=== PATIENT | female | born 1940 | race Caucasian/White ===

== ENCOUNTER 2016-11-13 15:50 | Outpatient (CLI) ==
[2016-11-13 15:57] LABS: HEMATOCRIT 35.1 % (37.0-47.0); HEMOGLOBIN 11.8 g/dl (12.0-16.0); MEAN CORPUSCULAR HEMOGLOBIN 30.7 pg (27.0-31.0); MEAN CORPUSCULAR HGB CONC 33.6 (31.8-35.4); MEAN CORPUSCULAR VOLUME 91.4 fl (81.0-99.0); RED BLOOD COUNT 3.84 10^6/ul (4.20-5.40); WHITE BLOOD COUNT 12.31 K/ul (4.6-10.2)
== END 2016-11-13 15:51 | disposition home or self-care (01) ==
LOC: NONPT 15:50
PROVIDERS: ATTEND Family Medicine
DX: N18.9 Chronic kidney disease, unspecified (principal); I12.9 Hypertensive chronic kidney disease with stage 1 through stage 4 chronic kidney disease, or unspecified chronic kidney disease; D50.9 Iron deficiency anemia, unspecified
CPT/HCPCS: 85027

== ENCOUNTER 2023-11-13 13:41 | Observation (INO) ==
--- NOTE | 2023-11-13 14:09 | ED.PDOC ---
General ED Provider: Dr. REBECCA MANNING MD Chief Complaint: Respiratory Complaint Stated Complaint: Patient with history of hypertension has had a productive cough green sputum for the past 3 weeks treated by primary care provider past couple days and placed on antibiotic patient has pain with inspiration denies nausea, vomiting, arthralgia, chest pain, dyspnea, Time Seen by Provider: 11/13/23 14:00 Mode of Arrival: Wheelchair Information Source: Patient Exam Limitations: Clinical condition Primary Care Provider: HALIMA MCCULLOUGH Seen Within Last 72 Hours for Same Complaint By: ED Nursing and Triage Documentation Reviewed and Agree: Yes What is Opioid Naive?: *Opioid Naive implies the patient is not already taking opioids or not chronically receiving opioids on a daily basis. *PRN dosing is not "usually" associated with tolerance. *Patients are at higher risk of over-sedation and aspiration. What is Opioid Tolerant?: *Opioid Tolerance implies less than the expected response to an opioid. *Acquired tolerance is defined by the patient taking 60mg of oral morphine daily (or equianalgesic dose of another opioid) for 1 week or more. *Often associated with chronic pain. *May take more than usual dose to achieve desired pain control. Review of Systems Review Of Systems Constitutional: Reports Weakness Eyes: Reports No symptoms Ears, Nose, Mouth, Throat: Reports No symptoms Respiratory: Reports Cough (Productive cough green sputum) Cardiac: Reports Chest pain ( pain upon inspiration and coughing) GI: Reports No symptoms : Reports No symptoms Musculoskeletal: Reports No symptoms Skin: Reports No symptoms Neurological: Reports No symptoms Endocrine: Reports No symptoms Hematologic/Lymphatic: Reports No symptoms All Other Systems: Reviewed and Negative PFSH Female Reproductive History Menstrual Hx Hysterectomy: Yes Hx Tubal Ligation: No Physical Exam Physical Exam Appearance: Reports Well-appearing Ill-appearing: None Pain Distress: None Eyes: Reports LAURIE, EOMI, Conjunctiva clear and Conjunctiva inflammed ENT: Reports Ears normal, Nose normal and Oropharynx normal Neck: Supple Respiratory: Reports Breath sounds diminished (At bases no wheezes rhonchi) Cardiovascular: Reports RRR, Pulses normal, No rub, No murmur and Not Examined GI/: Reports Soft, Nontender, No masses and Bowel sounds normal Musculoskeletal: Reports Normal strength, ROM intact, No edema and No calf tenderness Skin: Reports Warm and Dry Neurological: Reports Sensation intact, Motor intact and Reflexes intact Psychiatric: Reports Affect appropriate and Mood appropriate Physician Notification Case Discussed Physician Notified: Discussed with Dr. Maguire Time of Notification: 17:40 Comments: With recommendations to refer hospitalization to the hospitalist Physician Notified: Discussed with hospitalist Toney Time of Notification: 17:45 Comments: For admission to observation Critical Care Note Critical Care Note Total Critical Care Time (mins): 0 Course Course 11/13/23 14:22 11/13/23 14:22 Orders, Labs, Meds: Lab Review 11/13/23 11/13/23 11/13/23 14:22 14:30 17:00 WBC 12.78 H RBC 3.83 L Hgb 12.4 Hct 37.7 MCV 98.4 MCH 32.4 H MCHC 32.9 RDW Coeff of Staci 12.6 Plt Count 322 Immature Gran % (Auto) 1.3 Neut % (Auto) 70.1 Lymph % (Auto) 16.4 Ida % (Auto) 10.1 H Eos % (Auto) 1.2 Baso % (Auto) 0.9 Neut # (Auto) 9.0 H Lymph # (Auto) 2.1 Ida # (Auto) 1.3 Eos # (Auto) 0.2 Baso # (Auto) 0.1 Immature Gran # (Auto) 0.2 Sodium 133.5 L Potassium 3.10 L Chloride 103.3 Carbon Dioxide 26.7 Anion Gap 6.60 BUN 17.2 H Creatinine 1.37 H Estimated GFR (MDRD) 37.00 BUN/Creatinine Ratio 12.55 Glucose 99.1 Calcium 9.01 Total Bilirubin 1.01 AST 22.5 ALT 13.6 Alkaline Phosphatase 54.9 Troponin I < 0.012 Total Protein 6.35 Albumin 3.60 Globulin 2.75 Albumin/Globulin Ratio 1.30 D-Dimer 979.01 H Urine Color Yellow Urine Clarity Clear Urine pH 6.0 Ur Specific [place] 1.010 Urine Protein Trace H Urine Glucose (UA) Negative Urine Ketones Trace H Urine Blood 2+ H Urine Nitrite Negative Urine Bilirubin Negative Urine Urobilinogen 0.2 Ur Leukocyte Esterase Negative Urine Microscopic RBC 2-5 Ur Squamous Epith Cells 0-2 Ur Renal Epithelial Cell 0-2 Urine Mucus Trace Influ A Molecular Assay Negative by naat Influ B Molecular Assay Negative by naat RSV Antigen Positive by naat H SARS CoV-2 RNA Rapid EDVIN Negative Orders Category Date Time Status ADMIT OBSERVATION [PLACE PATIENT OBSERVATION] .TO ADMISSION 11/13/23 17:46 Active MEDSURG (MONITORED BED) EKG-(ED ONLY) Stat CARDIO 11/13/23 14:10 Completed NEBULIZER TREATMENT Routine CARDIO 11/13/23 17:49 Ordered NEBULIZER TREATMENT Stat CARDIO 11/13/23 14:11 Completed ACTIVITY .Early Mobilization for VTE Prevention CARE 11/13/23 17:47 Active INTAKE & OUTPUT Q8HR CARE 11/13/23 17:49 Active NPO REMINDER: IMAGING ONCE CARE 11/13/23 15:07 Completed TELEMETRY MONITORING TELE CARE 11/13/23 17:46 Active VITAL SIGNS Q4HR CARE 11/13/23 17:49 Active REGULAR DIET DIETARY 11/13/23 Dinner Ordered Glass Blowing Lathe Operator [ED MANUFACTURING SUPPORT ENGINEER APPLIED] .ONCE EMERGENCY 11/13/23 14:10 Active BLOOD CULTURE (ED ONLY) Stat LAB 11/13/23 17:28 Received CBC W/ AUTO DIFF DAILY@0600 LAB 11/14/23 06:00 Ordered CBC W/ AUTO DIFF DAILY@0600 LAB 11/15/23 06:00 Ordered CBC W/ AUTO DIFF Stat LAB 11/13/23 14:22 Completed CMP [COMPREHENSIVE METABOLIC PANEL] Stat LAB 11/13/23 14:22 Completed COMPREHENSIVE METABOLIC PANEL DAILY@0600 LAB 11/14/23 06:00 Ordered COMPREHENSIVE METABOLIC PANEL DAILY@0600 LAB 11/15/23 06:00 Ordered COVID [SARS COV-2 RNA RAPID EDVIN] Stat LAB 11/13/23 14:30 Completed D-DIMER Stat LAB 11/13/23 14:22 Completed FLU A & B MOLECULAR [FLU A/B MOLECULAR] Stat LAB 11/13/23 14:30 Completed RSV Stat LAB 11/13/23 14:30 Completed SPUTUM CULTURE Routine LAB 11/13/23 17:47 Uncollected TROPONIN I Stat LAB 11/13/23 14:22 Completed URINALYSIS C & S IF INDICATED Stat LAB 11/13/23 17:00 Completed Acetaminophen [Tylenol] Meds 11/13/23 17:47 Ordered 650 mg PO Q4H PRN Albuterol Sulfate 0.083% Neb [Albuterol 0.083% Neb] Meds 11/13/23 17:47 Ordered 2.5 mg NEB RTQ4H PRN Ceftriaxone/D5w 1 gm Premix [Rocephin 1 gm/50 ml D5w] Meds 11/14/23 09:00 Active 1 gm in 50 ml IV DAILY Doxycycline Hyclate Inj [Doxy-100] 100 mg Meds 11/14/23 09:00 Active 0.9 % Sodium Chloride [Sodium Chloride 100Ml] 100 ml IV Q12HR Ipratropium/Albuterol Neb [Duoneb] Meds 11/13/23 14:10 Discontinued 3 ml NEB ONCE STA Ipratropium/Albuterol Neb [Duoneb] Meds 11/13/23 18:00 Ordered 3 ml NEB RTQ6H Methylprednisolone Sod Succ/Pf [Solu-Medrol 40 mg] Meds 11/13/23 21:00 Ordered 40 mg IVP Q8HR Potassium Chloride [K-Dur] Meds 11/13/23 15:13 Discontinued 40 meq PO ONCE STA Sodium Chloride 0.9% [Sodium Chloride] 500 ml Meds 11/13/23 14:10 Discontinued IV BOLUS CHEST, 1V AP ONLY Stat RADS 11/13/23 14:09 Completed CTA CHEST PE PROTOCOL Stat RADS 11/13/23 15:06 Completed Medications Generic Name Dose Route Start Last Admin Trade Name Freq PRN Reason Stop Dose Admin Acetaminophen 650 mg 11/13/23 17:47 Acetaminophen 325 Mg Tablet PO Q4H PRN Mild Pain Albuterol Sulfate 2.5 mg 11/13/23 17:47 Albuterol Sulfate 0.083% Vial.Neb NEB RTQ4H PRN Wheezing Albuterol/Ipratropium 3 ml 11/13/23 18:00 Ipratropium/Albuterol Vial.Neb NEB RTQ6H JATIN Doxycycline Hyclate 100 mg/ 100 mls @ 50 mls/hr 11/14/23 09:00 Sodium Chloride IV 11/17/23 08:59 Q12HR JATIN CEFTRIAXONE/D5W 1 GM PREMIX 1 gm in 50 mls @ 100 mls/hr 11/14/23 09:00 Rocephin 1 Gm/50 Ml D5w IV 11/17/23 08:59 DAILY JATIN Methylprednisolone Sodium Succinate 40 mg 11/13/23 21:00 Methylprednisolone Sod Succ/Pf 40 Mg/Ml Vial IVP Q8HR JATIN Discontinued Medications Generic Name Dose Route Start Last Admin Trade Name Freq PRN Reason Stop Dose Admin Albuterol/Ipratropium 3 ml 11/13/23 14:10 11/13/23 14:39 Ipratropium/Albuterol Vial.Neb NEB 11/13/23 14:11 3 ml ONCE STA Administration Sodium Chloride 500 mls @ 250 mls/hr 11/13/23 14:10 11/13/23 15:27 Sodium Chloride IV 11/13/23 16:09 250 mls/hr BOLUS ONE Administration Potassium Chloride 40 meq 11/13/23 15:13 11/13/23 15:16 Potassium Chloride 20 Meq Tab PO 11/13/23 15:14 40 meq ONCE STA Administration Vital Signs: Temp Pulse Resp BP Pulse Ox 11/13/23 13:42 97.7 F 59 L 22 H 116/78 96 Discharge Plan Discharge Patient Disposition: PLACED OBSERVATION Discharge Problem: Respiratory syncytial virus (RSV), Acute hypokalemia Pneumonia Qualifiers: Pneumonia type: due to unspecified organism Laterality: bilateral Lung location: upper lobe of lung Qualified Code(s): J18.9 - Pneumonia, unspecified organism Prescriptions: No Action calcium 600 mg Capsule 1,200 mg PO BID sucralfate 1 gram tablet 1 mg PO QID lisinopril 20 mg tablet 20 mg PO DAILY tramadol 50 mg tablet 100 mg PO DAILY esomeprazole magnesium [Nexium] 40 mg Capsule,Delayed Release(Dr/Ec) 40 mg PO BID raloxifene 60 mg tablet 60 mg PO DAILY cranberry 450 mg Tablet 450 mg PO BID tramadol 50 mg tablet 50 mg PO TID PRN (Reason: pain) Qty: 30 0RF tramadol 50 mg tablet 50 mg PO TID PRN (Reason: joint pain) Qty: 30 0RF ergocalciferol (vitamin D2) [Vitamin D2] 1,250 mcg (50,000 unit) capsule 1,250 mcg PO DAILY Did you review [place] FIRE PRODUCTION OPERATOR for ALL controlled substances?: Not Applicable ED Provider: REBECCA MANNING Condition: Stable Physician Progress Note: History obtained from the patient and family member complains having a productive cough green sputum the past 3 weeks occasional dyspnea. Unsure of fever and chills. Has painful inspiration. Patient placed on antibiotics by primary care provider. Zithromax 250 mg since November 03 along with prednisone, 6-day course Medrol Dosepak Portable chest x-ray interpretation radiologist shows no acute cardiopulmonary process there is no pleural effusion consolidation of the thorax. Laboratory data CBC within normal limits except for white blood cell count 4700, troponin is less than 0.012, the BNP is within normal limit except potassium 3.1, and the D-dimer is 979. RSV is positive Patient administered potassium chloride [address] of the chest with intravenous contrast interpretation by radiologist shows no evidence of pulmonary embolism there is a subpleural groundglass opacity left upper lobe likely lesser from primary process less shows a similar less dense groundglass opacity posterior right lung base measuring 1.5 x 1 x 1 cm After 2 sets of blood cultures patient ministered doxycycline 100 mg IV piggyback Differential diagnosis: 1) pneumonia 2) RSV 3) hypokalemia Discussed with Dr. Maguire at 1740 with recommendations for hospitalization under care of the hospitalist Toney at 1745 []
[2023-11-13 14:29] LABS: BASOPHILS # (AUTO) 0.1 K/uL (0-0.2); BASOPHILS % (AUTO) 0.9 % (0.0-3.0); EOSINOPHILS # (AUTO) 0.2 K/ul (0.0-0.7); EOSINOPHILS % (AUTO) 1.2 % (0.0-7.0); HEMATOCRIT 37.7 % (37.0-47.0); HEMOGLOBIN 12.4 g/dl (12.0-16.0); IMMATURE GRANULOCYTE # (AUTO) 0.2 (0.0-1.0); IMMATURE GRANULOCYTE % (AUTO) 1.3 % (0.0-5.0); LYMPHOCYTES # (AUTO) 2.1 K/uL (0.60-3.4); LYMPHOCYTES % (AUTO) 16.4 (10.0-50.0); MEAN CORPUSCULAR HEMOGLOBIN 32.4 pg (27.0-31.0); MEAN CORPUSCULAR HGB CONC 32.9 (31.8-35.4); MEAN CORPUSCULAR VOLUME 98.4 fl (81.0-99.0); MONOCYTES # (AUTO) 1.3 K/uL (0.4-2.0); MONOCYTES % (AUTO) 10.1 (0-10); NEUTROPHILS % (AUTO) 70.1 % (42.2-75.2); PLATELET COUNT 322 10^3/uL (140-440); RDW COEFFICIENT OF VARIATION 12.6 % (11.6-14.8); RED BLOOD COUNT 3.83 10^6/ul (4.20-5.40); WHITE BLOOD COUNT 12.78 K/ul (4.6-10.2)
[2023-11-13] MEDS: DUONEB NEB STA (14:39)
--- NOTE | 2023-11-13 14:42 | DI ---
EXAM: CHEST RADIOGRAPH (1 VIEW) TECHNIQUE: Frontal Chest Radiograph. HISTORY: Productive cough COMPARISON: 06/10/2023. FINDINGS: Lines, Tubes, Devices: None Lungs and Pleura: No focal consolidation. No pleural effusion. No pneumothorax. Cardiac silhouette: Normal. Bones: No acute abnormality. IMPRESSION: No acute radiographic abnormality. If symptoms persist, follow-up imaging is recommended.
[2023-11-13 14:44] LABS: ALANINE AMINOTRANSFERASE 13.6 U/L (0-35); ALKALINE PHOSPHATASE 54.9 U/L (53-141); ASPARTATE AMINO TRANSFERASE 22.5 U/L (14-36); BILIRUBIN,TOTAL 1.01 mg/dL (0.2-1.3); BLOOD UREA NITROGEN 17.2 mg/dL (7-17); CALCIUM 9.01 mg/dL (8.4-10.2); CARBON DIOXIDE 26.7 mmol/L (22-30.0); CHLORIDE 103.3 mmol/L (98-107); CREATININE 1.37 mg/dL (0.60-1.30); GLUCOSE 99.1 mg/dL (74-106); SODIUM 133.5 mmol/L (134.5-145); TOTAL PROTEIN 6.35 g/dL (6.3-8.2)
[2023-11-13 14:55] LABS: RSV MOLECULAR POSITIVE BY NAAT (NEGATIVE)
[2023-11-13 14:56] LABS: TROPONIN I < 0.012 ng/ml (0.0000-0.120)
[2023-11-13 15:04] LABS: MOLECULAR FLU A NEGATIVE BY NAAT (NEGATIVE); MOLECULAR FLU B NEGATIVE BY NAAT (NEGATIVE); SARS COV-2 RNA RAPID NAAT NEGATIVE (NEGATIVE)
[2023-11-13] MEDS: K-DUR PO STA (15:16)
[2023-11-13] MEDS: SODIUM CHLORIDE 500 ML IV ONE (15:27)
--- NOTE | 2023-11-13 16:43 | CT ---
EXAM: CHEST CTA WITH CONTRAST (PULMONARY ARTERY) HISTORY: Chest pain. Elevated D-dimer. TECHNIQUE: CTA acquisition of the chest from the thoracic inlet to the upper abdomen following IV con trast administration timed to filling of the pulmonary artery. IV Contrast: 100 ccs Visipaque 320. 3D/MIP/VR images Yes. CT Dose Reduction Techniques Employed: Yes. COMPARISON: None. FINDINGS: Lines, Tubes, Devices: None. Pulmonary Embolism: - Diagnostic quality: Adequate. - Central(Main/Lobar/Interlobar): No embolus. - Peripheral (Segmental/Subsegmental): No embolus. - Right ventricle/Left ventricle ratio (normal <0.9): Normal. Lung Parenchyma and Airways: Central airways are patent without endobronchial lesion. No focal consolidation. Severe parenchyma is limited due to motion artifact. There is a subpleural consolidation in the anterior medial left upper lobe measuring up to 1.0 x 2.0 cm.. There is a ground-glass opacity in the posterior right lung base measuring up to 1.5141 cm. Pleural Space: No pleural effusion. No pleural thickening. No pneumothorax. Thoracic Inlet, Mediastinum, and Cira: Thyroid gland is normal. No lymphadenopathy. Heart, Vessels, and Pericardium: -Aorta is normal in caliber with mild atherosclerotic calcifications. -Main pulmonary artery is normal in caliber. -Heart chambers are not enlarged. -No significant valvular calcifications. -No significant coronary artery calcifications, however exam is not optimized for evaluation. -No pericardial effusion or thickening. Bones and Soft Tissues: Visualized bones are within normal limits. Chest wall soft tissues are withi n normal limits. Upper Abdomen: Elevated right hemidiaphragm. There is a hiatal hernia. Thickening of the distal eso phageal wall is seen measuring up to 9 mm. There is some contrast in the stomach.. IMPRESSION: 1. No pulmonary embolism. 2. Subpleural ground-glass opacity in left upper lobe, likely due to atelectasis or inflammatory pro cess. Less shows a similar, less dense ground-glass opacity posterior right lung base measuring 1.5 1.1 cm. Recommend short-term follow-up chest CT in 3 months to exclude developing mass. 3. Hiatal hernia. Distal esophageal wall All CT scans are performed using dose optimization techniques as appropriate to the performed exam an d include at least one of the following: Automated exposure control, adjustment of the mA and/or kV according t o size, and the use of iterative reconstruction technique.
[2023-11-13 17:38] LABS: BILIRUBIN,URINE Negative (NEGATIVE); CLARITY,URINE Clear (CLEAR); COLOR,URINE Yellow (YELLOW); GLUCOSE, URINE (UA) Negative (NEGATIVE); KETONES,URINE Trace (NEGATIVE); LEUKOCYTE ESTERASE ,URINE Negative (NEGATIVE); NITRITE,URINE Negative (NEGATIVE); PROTEIN,URINE Trace (NEGATIVE); URINE, BLOOD 2+ (NEGATIVE); UROBILINOGEN,URINE 0.2 (0.2)
[2023-11-13 17:43] LABS: RENAL EPITHELIAL CELLS,URINE 0-2 (NOT PRESENT); SQUAMOUS EPITHELIAL CELL,UR 0-2 (0-5)
[2023-11-13 17:44] LABS: MUCUS,URINE TRACE (NOT PRESENT)
[2023-11-13] MEDS ORDERED: ALBUTEROL 0.083% NEB NEB PRN (17:47)
[2023-11-13] MEDS ORDERED: TYLENOL PO PRN (17:47)
[2023-11-13] MEDS: DUONEB NEB SCH (18:14)
[2023-11-13] MEDS: DOXY-100 100 MG in SODIUM CHLORIDE 100ML 100 ML IV ONE (18:59)
[2023-11-13 20:27] VITALS: BMI 21.2
[2023-11-13] MEDS: TESSALON PERLES PO PRN (21:08)
[2023-11-13] MEDS: ZOFRAN 4 MG/2 ML IVP PRN (21:08)
[2023-11-13] MEDS: SOLU-MEDROL 40 MG IVP SCH (21:08)
[2023-11-14 06:25] LABS: BASOPHILS % (AUTO) 0.5 % (0.0-3.0); HEMATOCRIT 35.9 % (37.0-47.0); HEMOGLOBIN 11.6 g/dl (12.0-16.0); IMMATURE GRANULOCYTE # (AUTO) 0.1 (0.0-1.0); IMMATURE GRANULOCYTE % (AUTO) 0.9 % (0.0-5.0); LYMPHOCYTES # (AUTO) 0.6 K/uL (0.60-3.4); LYMPHOCYTES % (AUTO) 7.5 (10.0-50.0); MEAN CORPUSCULAR HEMOGLOBIN 31.6 pg (27.0-31.0); MEAN CORPUSCULAR HGB CONC 32.3 (31.8-35.4); MEAN CORPUSCULAR VOLUME 97.8 fl (81.0-99.0); MONOCYTES # (AUTO) 0.1 K/uL (0.4-2.0); MONOCYTES % (AUTO) 1.3 (0-10); NEUTROPHILS # (AUTO) 7.2 K/ul (2.0-6.9); NEUTROPHILS % (AUTO) 89.8 % (42.2-75.2); PLATELET COUNT 293 10^3/uL (140-440); RDW COEFFICIENT OF VARIATION 12.7 % (11.6-14.8); RED BLOOD COUNT 3.67 10^6/ul (4.20-5.40); WHITE BLOOD COUNT 7.98 K/ul (4.6-10.2)
[2023-11-14 06:40] LABS: ALANINE AMINOTRANSFERASE 14.3 U/L (0-35); ALBUMIN 3.36 g/dL (3.5-5.0); ALKALINE PHOSPHATASE 57.3 U/L (53-141); ASPARTATE AMINO TRANSFERASE 21.8 U/L (14-36); BILIRUBIN,TOTAL 0.83 mg/dL (0.2-1.3); BLOOD UREA NITROGEN 15.3 mg/dL (7-17); CALCIUM 8.42 mg/dL (8.4-10.2); CARBON DIOXIDE 20.8 mmol/L (22-30.0); CHLORIDE 107.3 mmol/L (98-107); CREATININE 0.96 mg/dL (0.60-1.30); GLUCOSE 183.7 mg/dL (74-106); TOTAL PROTEIN 6.34 g/dL (6.3-8.2)
[2023-11-14 06:45] LABS: POTASSIUM 3.74 mmol/L (3.5-5.1)
[2023-11-14] MEDS ORDERED: ULTRAM PO PRN (08:08)
[2023-11-14] MEDS: PROTONIX PO SCH (08:46)
[2023-11-14] MEDS: CARAFATE PO SCH (08:46)
[2023-11-14] MEDS: DOXY-100 100 MG in SODIUM CHLORIDE 100ML 100 ML IV SCH ×2 (08:47→08:48)
[2023-11-14] MEDS ORDERED: NON-FORMULARY MEDICATION (Esomeprazole Magnesium [Nexium] 40 mg Capsule,Delayed Release(Dr PO SCH (09:00)
[2023-11-14] MEDS: RALOXIFENE 60 MG PO SCH (09:20)
[2023-11-14] MEDS: ROCEPHIN 1 GM/50 ML D5W 1 GM/50 ML BAG IV SCH (11:07)
--- NOTE | 2023-11-14 12:17 | PCM ---
Date of Service Date Seen by Provider: 11/14/23 Admit Day/Time Admission Date: 11/13/23 Reason for Admission Chief Complaint: PNEUMONIA, RSV Hospital Provider Hospital Provider: ANGÉLICA CHAMPAGNE, [facility] Primary Care Physician Primary Care Physician: HALIMA MCCULLOUGH History of Present Illness History of Present Illness: 83 yo female presented to the ER with complaints of weakness, shortness of breath, and cough. Patient states that she has been sick for a total of 3 weeks. Saw her PCP last week and was prescribed a z pack and steroids. She completed course of both of these on Friday and still has not improved. Denies fever that she is aware of, chest pain, n/v/d. She was found to have RSV in the ER as well as pneumonia. She was admitted to Med/surg observation. Case Discussed With Case Discussed With: Patient's case was discussed with the ER Physicians, Dr. Gardner. [facility] Medical History Diverticulitis K57.92 - Diverticulitis of intestine, part unspecified, without perforation or abscess without bleeding (ICD-10) Hypertension I10 - Essential (primary) hypertension (ICD-10) Surgical History History of tonsillectomy Z90.89 - Acquired absence of other organs (ICD-10) History of appendectomy Z90.49 - Acquired absence of other specified parts of digestive tract (ICD- 10) Hx of cholecystectomy Z90.49 - Acquired absence of other specified parts of digestive tract (ICD- 10) H/O: hysterectomy Z90.710 - Acquired absence of both cervix and uterus (ICD-10) Family History FATHER Heart attack Lung disease Social History Smoking and tobacco status: Never smoker Alcohol intake: never Substance use type: does not use Household members: none Lives independently: Yes Number of children: 0 Current occupational status: disabled History of recent travel: No Current diet type/program: regular Allergies Allergies Allergy/AdvReac Type Severity Reaction Status Date / Time clarithromycin AdvReac Verified 11/13/23 14:14 furosemide [From Lasix] AdvReac Hives Verified 11/13/23 13:54 levofloxacin AdvReac Hives Verified 11/13/23 13:54 mirtazapine AdvReac Verified 11/13/23 14:14 pantoprazole AdvReac Hives Verified 11/13/23 13:54 Penicillins AdvReac Hives Verified 11/13/23 13:54 Current Medications Home Medications calcium 600 mg capsule 1,200 mg PO BID 05/15/21 [History Confirmed 11/13/23 Last Taken Unknown] cranberry fruit 450 mg tablet (cranberry) 450 mg PO BID 05/15/21 [History Confirmed 11/13/23 Last Taken Unknown] esomeprazole magnesium 40 mg capsule,delayed release (Nexium) 40 mg PO BID 05/15/21 [History Confirmed 11/13/23 Last Taken Unknown] lisinopril 20 mg tablet 20 mg PO DAILY 05/15/21 [History Confirmed 11/13/23 Last Taken Unknown] raloxifene 60 mg tablet 60 mg PO DAILY 05/15/21 [History Confirmed 11/13/23 Last Taken Unknown] sucralfate 1 gram tablet 1 mg PO QID 05/15/21 [History Confirmed 11/13/23 Last Taken Unknown] tramadol 50 mg tablet 50 mg PO TID PRN joint pain #30 tabs 05/15/21 [Rx Confirmed 11/13/23 Last Taken Unknown] tramadol 50 mg tablet 50 mg PO TID PRN pain #30 tabs 05/15/21 [Rx Confirmed 11/13/23 Last Taken Unknown] tramadol 50 mg tablet 100 mg PO DAILY 05/15/21 [History Confirmed 11/13/23 Last Taken Unknown] ergocalciferol (vitamin D2) 1,250 mcg (50,000 unit) capsule (Vitamin D2) 1,250 mcg PO DAILY 11/13/23 [History Confirmed 11/13/23 Last Taken Unknown] Home Acetaminophen (Acetaminophen 325 Mg Tablet) 650 mg PO Q4H PRN PRN Reason: Mild Pain Albuterol Sulfate (Albuterol Sulfate 0.083% Vial.Neb) 2.5 mg NEB RTQ4H PRN PRN Reason: Wheezing Albuterol/Ipratropium (Ipratropium/Albuterol Vial.Neb) 3 ml NEB RTQ6H JATIN Last Admin: 11/14/23 11:07 Dose: 3 ml Benzonatate (Benzonatate 100 Mg Capsule) 100 mg PO TID PRN PRN Reason: Cough Last Admin: 11/14/23 12:51 Dose: 100 mg Ergocalciferol (Ergocalciferol (Vitamin D2) 50,000 Unit Capsule) 50,000 unit PO WEEKLY [facility] CEFTRIAXONE/D5W 1 GM PREMIX (Rocephin 1 Gm/50 Ml D5w) 1 gm in 50 mls @ 100 mls/hr IV DAILY [facility] Stop: 11/17/23 08:59 Last Admin: 11/14/23 11:07 Dose: 100 mls/hr Doxycycline Hyclate 100 mg/ (Sodium Chloride) 100 mls @ 50 mls/hr IV Q12HR [facility] Stop: 11/17/23 07:59 Last Admin: 11/14/23 09:19 Dose: Not Given Methylprednisolone Sodium Succinate (Methylprednisolone Sod Succ/Pf 40 Mg/Ml Vial) 40 mg IVP Q8HR [facility] Last Admin: 11/14/23 05:26 Dose: 40 mg Non-Formulary Medication (Raloxifene) 60 mg PO DAILY [facility] Last Admin: 11/14/23 09:20 Dose: Not Given Ondansetron HCl (Ondansetron Hcl/Pf 4 Mg/2 Ml Sdv) 4 mg IVP Q6H PRN PRN Reason: Nausea / Vomiting Last Admin: 11/14/23 12:48 Dose: 4 mg Pantoprazole Sodium (Pantoprazole Sodium 40 Mg Tablet.Dr) 40 mg PO BIDAC2 [facility] Last Admin: 11/14/23 08:46 Dose: 40 mg Sucralfate (Sucralfate 1 Gm Tablet) 1 gm PO ACHS2 [facility] Last Admin: 11/14/23 11:07 Dose: 1 gm Tramadol HCl (Tramadol Hcl 50 Mg Tablet) 50 mg PO TID PRN PRN Reason: Pain Discontinued Medications Albuterol/Ipratropium (Ipratropium/Albuterol Vial.Neb) 3 ml NEB ONCE STA Stop: 11/13/23 14:11 Last Admin: 11/13/23 14:39 Dose: 3 ml Sodium Chloride (Sodium Chloride) 500 mls @ 250 mls/hr IV BOLUS ONE Stop: 11/13/23 16:09 Last Admin: 11/13/23 15:27 Dose: 250 mls/hr Doxycycline Hyclate 100 mg/ (Sodium Chloride) 100 mls @ 50 mls/hr IV Q12HR JATIN Stop: 11/17/23 08:59 Last Admin: 11/14/23 08:47 Dose: 50 mls/hr Doxycycline Hyclate 100 mg/ (Sodium Chloride) 100 mls @ 50 mls/hr IV ONCE ONE Stop: 11/13/23 19:55 Last Admin: 11/13/23 18:59 Dose: 50 mls/hr Potassium Chloride (Potassium Chloride 20 Meq Tab) 40 meq PO ONCE STA Stop: 11/13/23 15:14 Last Admin: 11/13/23 15:16 Dose: 40 meq Opioid Naive vs. Tolerant Does Patient Take Opioids?: No Is Patient Opioid Naive?: Yes What is Opioid Naive?: *Opioid Naive implies the patient is not already taking opioids or not chronically receiving opioids on a daily basis. *PRN dosing is not "usually" associated with tolerance. *Patients are at higher risk of over-sedation and aspiration. Is Patient Opioid Tolerant?: No What is Opioid Tolerant?: *Opioid Tolerance implies less than the expected response to an opioid. *Acquired tolerance is defined by the patient taking 60mg of oral morphine daily (or equianalgesic dose of another opioid) for 1 week or more. *Often associated with chronic pain. *May take more than usual dose to achieve desired pain control. Review of Systems Constitutional: Reports Weakness Head: Reports Normocephalic Eyes: Reports No symptoms Ears: Reports No symptoms Nose: Reports No symptoms Mouth: Reports No symptoms Throat: Reports No symptoms Cardiovascular: Reports No symptoms Respiratory: Reports Cough and Shortness of air Gastrointestinal: Reports No symptoms Genitourinary: Reports No Symptoms Musculoskeletal: Reports No symptoms Endocrine: Reports No symptoms Hematology: Reports No symptoms Immunology: Reports No symptoms Neurological: Reports No symptoms Psychiatric: Reports No symptoms Physical examination Most Recent Vital Signs: Most Recent Vital Signs Temperature 100.4 F H 11/14/23 09:53 Temperature Source Tympanic 11/14/23 09:53 Temperature Source Infrared 11/13/23 13:42 Pulse Rate 88 11/14/23 09:53 Respiratory Rate 18 11/14/23 09:53 Blood Pressure 113/66 11/14/23 09:53 Blood Pressure Mean 81 11/14/23 09:53 Blood Pressure Left Arm 159/85 11/13/23 20:05 Blood Pressure Location Left Arm 11/14/23 09:53 Blood Pressure Position Sitting 11/14/23 09:53 O2 Sat by Pulse Oximetry 95 11/14/23 09:53 Oxygen Delivery Method Room Air 11/14/23 11:49 Height 5 ft 4 in 11/13/23 20:05 Weight 123 lb 7 oz 11/13/23 20:05 Telemetry Type Remote Telemetry 11/14/23 07:00 Telemetry Monitoring Continues 11/14/23 07:00 Telemetry Heart Rate 98 11/14/23 07:00 EKG MN Interval 0.20 11/14/23 07:00 EKG QRS Interval 0.11 H 11/14/23 07:00 Telemetry Strip Reading SR with BBB 11/14/23 07:00 Appearance: Positive No Apparent Distress and Alert and Oriented x3 Skin: Positive Warm and Good Turgor HEENT: Positive Normocephalic and PERRLA Neck: Positive Supple and Midline Trachea Chest/Lungs: Positive Symmetrical With Equal Breath Sounds, Rhonci (bilaterally, diminished) and Other Heart: Positive RRR and Pulses Normal GI/: Positive Soft, Nontender, Bowel Sounds Normal and No Distention Musculoskeletal: Positive Not Examined Extremities: Positive Intact Peripheral Pulses, Stable Joints Without Laxity and Good ROM in All Joints Neurological: Positive Sensation Intact, Motor intact, Reflexes Intact, Alert and Oriented Psychiatric: Positive Oriented x4, Appropriate Mood, Appropriate Affect, Intact Memory, Good Short-Term Recall, Good Long-Term Recall, Normal Judgement and Normal Insight Labs This Visit Labs This Visit: Labs This Visit 11/13/23 11/13/23 11/13/23 14:22 14:30 17:00 WBC 12.78 H RBC 3.83 L Hgb 12.4 Hct 37.7 MCV 98.4 MCH 32.4 H MCHC 32.9 RDW Coeff of Staci 12.6 Plt Count 322 Immature Gran % (Auto) 1.3 Neut % (Auto) 70.1 Lymph % (Auto) 16.4 [place] % (Auto) 10.1 H Eos % (Auto) 1.2 Baso % (Auto) 0.9 Neut # (Auto) 9.0 H Lymph # (Auto) 2.1 [place] # (Auto) 1.3 Eos # (Auto) 0.2 Baso # (Auto) 0.1 Immature Gran # (Auto) 0.2 Sodium 133.5 L Potassium 3.10 L Chloride 103.3 Carbon Dioxide 26.7 Anion Gap 6.60 BUN 17.2 H Creatinine 1.37 H Estimated GFR (MDRD) 37.00 BUN/Creatinine Ratio 12.55 Glucose 99.1 Calcium 9.01 Total Bilirubin 1.01 AST 22.5 ALT 13.6 Alkaline Phosphatase 54.9 Troponin I < 0.012 Total Protein 6.35 Albumin 3.60 Globulin 2.75 Albumin/Globulin Ratio 1.30 D-Dimer 979.01 H Urine Color Yellow Urine Clarity Clear Urine pH 6.0 Ur Specific [place] 1.010 Urine Protein Trace H Urine Glucose (UA) Negative Urine Ketones Trace H Urine Blood 2+ H Urine Nitrite Negative Urine Bilirubin Negative Urine Urobilinogen 0.2 Ur Leukocyte Esterase Negative Urine Microscopic RBC 2-5 Ur Squamous Epith Cells 0-2 Ur Renal Epithelial Cell 0-2 Urine Mucus Trace Influ A Molecular Assay Negative by naat Influ B Molecular Assay Negative by naat RSV Antigen Positive by naat H SARS CoV-2 RNA Rapid EDVIN Negative 11/14/23 06:19 WBC 7.98 RBC 3.67 L Hgb 11.6 L Hct 35.9 L MCV 97.8 MCH 31.6 H MCHC 32.3 RDW Coeff of Staci 12.7 Plt Count 293 Immature Gran % (Auto) 0.9 Neut % (Auto) 89.8 H Lymph % (Auto) 7.5 L [place] % (Auto) 1.3 Eos % (Auto) 0.0 Baso % (Auto) 0.5 Neut # (Auto) 7.2 H Lymph # (Auto) 0.6 [place] # (Auto) 0.1 L Eos # (Auto) 0.0 Baso # (Auto) 0.0 Immature Gran # (Auto) 0.1 Sodium 134.0 L Potassium 3.74 Chloride 107.3 H Carbon Dioxide 20.8 L Anion Gap 9.64 BUN 15.3 Creatinine 0.96 Estimated GFR (MDRD) 56.00 BUN/Creatinine Ratio 15.93 Glucose 183.7 H D Calcium 8.42 Total Bilirubin 0.83 AST 21.8 ALT 14.3 Alkaline Phosphatase 57.3 Troponin I Total Protein 6.34 Albumin 3.36 L Globulin 2.98 Albumin/Globulin Ratio 1.12 D-Dimer Urine Color Urine Clarity Urine pH Ur Specific [place] Urine Protein Urine Glucose (UA) Urine Ketones Urine Blood Urine Nitrite Urine Bilirubin Urine Urobilinogen Ur Leukocyte Esterase Urine Microscopic RBC Ur Squamous Epith Cells Ur Renal Epithelial Cell Urine Mucus Influ A Molecular Assay Influ B Molecular Assay RSV Antigen SARS CoV-2 RNA Rapid EDVIN Imaging Imaging: EXAM: CHEST CTA WITH CONTRAST (PULMONARY ARTERY) FINDINGS: Lines, Tubes, Devices: None. Pulmonary Embolism: - Diagnostic quality: Adequate. - Central(Main/Lobar/Interlobar): No embolus. - Peripheral (Segmental/Subsegmental): No embolus. - Right ventricle/Left ventricle ratio (normal <0.9): Normal. Lung Parenchyma and Airways: Central airways are patent without endobronchial lesion. No focal consolidation. Severe parenchyma is limited due to motion artifact. There is a subpleural consolidation in the anterior medial left upper lobe measuring up to 1.0 x 2.0 cm.. There is a ground-glass opacity in the posterior right lung base measuring up to 1.5141 cm. Pleural Space: No pleural effusion. No pleural thickening. No pneumothorax. Thoracic Inlet, Mediastinum, and Cira: Thyroid gland is normal. No lymphadenopathy. Heart, Vessels, and Pericardium: -Aorta is normal in caliber with mild atherosclerotic calcifications. -Main pulmonary artery is normal in caliber. -Heart chambers are not enlarged. -No significant valvular calcifications. -No significant coronary artery calcifications, however exam is not optimized for evaluation. -No pericardial effusion or thickening. Bones and Soft Tissues: Visualized bones are within normal limits. Chest wall soft tissues are within normal limits. Upper Abdomen: Elevated right hemidiaphragm. There is a hiatal hernia. Thickening of the distal esophageal wall is seen measuring up to 9 mm. There is some contrast in the stomach.. IMPRESSION: 1. No pulmonary embolism. 2. Subpleural ground-glass opacity in left upper lobe, likely due to atelectasis or inflammatory process. Less shows a similar, less dense ground- glass opacity posterior right lung base measuring 1.5 1.1 cm. Recommend short- term follow-up chest CT in 3 months to exclude developing mass. 3. Hiatal hernia. Distal esophageal wall Review Statement Review Statement: I have independently reviewed and interpreted the labs/EKGs/imaging that were ordered by the ER provider. I have reviewed all outside records that are available currently in our EMR including imaging/notes/labs from previous visits. Plan Plan: 1. Community Acquired Pneumonia - failed outpatient treatment, rocephin and doxycycline due to allergies, nebs, steroids, sputum culture 2. RSV - isolation, symptom management 3. Hypertension - chronic, holding home medications due to low BP 4. GERD - chronic, continue home medications DVT Prophylaxis: Ambulation Time Spent: Greater than 80 minutes spent with patient, 50% of the time spent with this patient was devoted to counseling and coordination of care. [facility] minutes spent discussing advance care planning. Disposition: Admit to: Med/Surg Observation DNR Discussed Plan of Care with Dr. Laquita Rodríguez. Medications Medication Orders: Medications Ordered Category Date Time Status Acetaminophen [Tylenol] Meds 11/13/23 17:47 Active 650 mg PO Q4H PRN Albuterol Sulfate 0.083% Neb [Albuterol 0.083% Neb] Meds 11/13/23 17:47 Active 2.5 mg NEB RTQ4H PRN Benzonatate [Tessalon Perles] Meds 11/13/23 21:01 Active 100 mg PO TID PRN Ceftriaxone/D5w 1 gm Premix [Rocephin 1 gm/50 ml D5w] Meds 11/14/23 09:00 Active 1 gm in 50 ml IV DAILY Doxycycline Hyclate Inj [Doxy-100] 100 mg Meds 11/14/23 08:00 Active 0.9 % Sodium Chloride [Sodium Chloride 100Ml] 100 ml IV Q12HR Ergocalciferol (Vitamin D2) [Drisdol] Meds 11/20/23 09:00 Active 50,000 unit PO WEEKLY Ipratropium/Albuterol Neb [Duoneb] Meds 11/13/23 18:00 Active 3 ml NEB RTQ6H Methylprednisolone Sod Succ/Pf [Solu-Medrol 40 mg] Meds 11/13/23 21:00 Active 40 mg IVP Q8HR Ondansetron HCl/Pf [Zofran 4 mg/2 ml] Meds 11/13/23 21:01 Active 4 mg IVP Q6H PRN Pantoprazole Sodium [Protonix] Meds 11/14/23 08:30 Active 40 mg PO BIDAC2 Sucralfate [Carafate] Meds 11/14/23 08:30 Active 1 gm PO ACHS2 Tramadol HCl [Ultram] Meds 11/14/23 08:08 Active 50 mg PO TID PRN raloxifene Meds 11/14/23 09:00 Active 60 mg PO DAILY
[2023-11-14] MEDS: PHENERGAN WITH CODEINE 6.25/10 MG/5 ML PO PRN (22:24)
[2023-11-15 05:44] LABS: BASOPHILS % (AUTO) 0.1 % (0.0-3.0); HEMATOCRIT 32.3 % (37.0-47.0); HEMOGLOBIN 10.5 g/dl (12.0-16.0); IMMATURE GRANULOCYTE # (AUTO) 0.3 (0.0-1.0); IMMATURE GRANULOCYTE % (AUTO) 1.2 % (0.0-5.0); LYMPHOCYTES # (AUTO) 0.7 K/uL (0.60-3.4); LYMPHOCYTES % (AUTO) 3.4 (10.0-50.0); MEAN CORPUSCULAR HEMOGLOBIN 31.8 pg (27.0-31.0); MEAN CORPUSCULAR HGB CONC 32.5 (31.8-35.4); MEAN CORPUSCULAR VOLUME 97.9 fl (81.0-99.0); MONOCYTES # (AUTO) 0.5 K/uL (0.4-2.0); MONOCYTES % (AUTO) 2.6 (0-10); NEUTROPHILS # (AUTO) 19.5 K/ul (2.0-6.9); NEUTROPHILS % (AUTO) 92.7 % (42.2-75.2); PLATELET COUNT 283 10^3/uL (140-440); RDW COEFFICIENT OF VARIATION 12.8 % (11.6-14.8)
[2023-11-15 05:52] LABS: ALANINE AMINOTRANSFERASE 13.1 U/L (0-35); ALBUMIN 3.15 g/dL (3.5-5.0); ALKALINE PHOSPHATASE 55.9 U/L (53-141); ASPARTATE AMINO TRANSFERASE 24.1 U/L (14-36); BILIRUBIN,TOTAL 0.48 mg/dL (0.2-1.3); BLOOD UREA NITROGEN 19.6 mg/dL (7-17); CALCIUM 8.46 mg/dL (8.4-10.2); CARBON DIOXIDE 21.3 mmol/L (22-30.0); CHLORIDE 108.4 mmol/L (98-107); CREATININE 0.96 mg/dL (0.60-1.30); GLUCOSE 138.7 mg/dL (74-106); TOTAL PROTEIN 5.94 g/dL (6.3-8.2)
[2023-11-15 05:57] LABS: WHITE BLOOD COUNT 21.01 K/ul (4.6-10.2)
[2023-11-15] MEDS: SODIUM CHLORIDE 1,000 ML IV SCH (08:57)
[2023-11-15] MEDS ORDERED: LOPRESSOR PO SCH (09:00)
[2023-11-15] MEDS: REGLAN IVP ONE (09:23)
--- NOTE | 2023-11-15 09:24 | PCM.PROG ---
Date/Time Seen Date Seen by Provider: 11/15/23 Time Seen by Provider: 08:35 Provider Provider: [facility] Chief Complaint Chief Complaint: PNEUMONIA, RSV Subjective Subjective: Continued dry cough. Feels nauseated from coughing frequently. Does feel some better today but not well enough to go home Vital Signs Vital Signs: Vital Signs: Last 24 Hours 11/14/23 09:53 11/14/23 09:53 11/14/23 11:00 Temperature 100.4 F H Temperature Source Tympanic Pulse Rate 88 Respiratory Rate 18 Blood Pressure 113/66 Blood Pressure Mean 81 Blood Pressure Location Left Arm Blood Pressure Position Sitting O2 Sat by Pulse Oximetry 95 Oxygen Delivery Method Room Air Room Air Room Air Telemetry Type Telemetry Monitoring Telemetry Heart Rate EKG ME Interval EKG QRS Interval Telemetry Strip Reading 11/14/23 11:49 11/14/23 12:48 11/14/23 13:00 Temperature Temperature Source Pulse Rate Respiratory Rate Blood Pressure Blood Pressure Mean Blood Pressure Location Blood Pressure Position O2 Sat by Pulse Oximetry Oxygen Delivery Method Room Air Room Air Telemetry Type Remote Telemetry Telemetry Monitoring Continues Telemetry Heart Rate 98 EKG ME Interval 0.12 EKG QRS Interval 0.06 Telemetry Strip Reading SR 11/14/23 14:00 11/14/23 14:00 11/14/23 14:49 Temperature 97.7 F Temperature Source Tympanic Pulse Rate 100 Respiratory Rate 26 H Blood Pressure 112/62 Blood Pressure Mean 78 Blood Pressure Location Right Arm Blood Pressure Position Sitting O2 Sat by Pulse Oximetry 95 Oxygen Delivery Method Room Air Room Air Room Air Telemetry Type Telemetry Monitoring Telemetry Heart Rate EKG ME Interval EKG QRS Interval Telemetry Strip Reading 11/14/23 15:57 11/14/23 16:57 11/14/23 17:57 Temperature Temperature Source Pulse Rate Respiratory Rate Blood Pressure Blood Pressure Mean Blood Pressure Location Blood Pressure Position O2 Sat by Pulse Oximetry Oxygen Delivery Method Room Air Room Air Room Air Telemetry Type Telemetry Monitoring Telemetry Heart Rate EKG ME Interval EKG QRS Interval Telemetry Strip Reading 11/14/23 17:57 11/14/23 19:00 11/14/23 19:00 Temperature 97.7 F Temperature Source Temporal Artery Scan Pulse Rate 109 H Respiratory Rate 20 Blood Pressure 112/69 Blood Pressure Mean 83 Blood Pressure Location Left Arm Blood Pressure Position Sitting O2 Sat by Pulse Oximetry 95 Oxygen Delivery Method Room Air Room Air Telemetry Type Remote Telemetry Telemetry Monitoring Continues Telemetry Heart Rate 110 H EKG ME Interval 0.13 EKG QRS Interval 0.10 Telemetry Strip Reading SINUS TACHYCARDIA 11/14/23 20:00 11/14/23 20:00 11/14/23 20:32 Temperature 98.5 F Temperature Source Oral Pulse Rate 100 Respiratory Rate 20 Blood Pressure 152/63 H Blood Pressure Mean 92 Blood Pressure Location Left Arm Blood Pressure Position Supine O2 Sat by Pulse Oximetry 94 L Oxygen Delivery Method Room Air Room Air Room Air Telemetry Type Telemetry Monitoring Telemetry Heart Rate EKG ME Interval EKG QRS Interval Telemetry Strip Reading 11/14/23 21:00 11/14/23 22:00 11/14/23 23:00 Temperature Temperature Source Pulse Rate Respiratory Rate Blood Pressure Blood Pressure Mean Blood Pressure Location Blood Pressure Position O2 Sat by Pulse Oximetry Oxygen Delivery Method Room Air Room Air Room Air Telemetry Type Telemetry Monitoring Telemetry Heart Rate EKG ME Interval EKG QRS Interval Telemetry Strip Reading 11/15/23 00:00 11/15/23 01:00 11/15/23 01:00 Temperature Temperature Source Pulse Rate Respiratory Rate Blood Pressure Blood Pressure Mean Blood Pressure Location Blood Pressure Position O2 Sat by Pulse Oximetry Oxygen Delivery Method Room Air Room Air Telemetry Type Remote Telemetry Telemetry Monitoring Continues Telemetry Heart Rate 87 EKG ME Interval 0.21 H EKG QRS Interval 0.10 Telemetry Strip Reading SR W/ 1ST AVB 11/15/23 02:00 11/15/23 02:00 11/15/23 03:00 Temperature 98.1 F Temperature Source Oral Pulse Rate 85 Respiratory Rate 16 Blood Pressure 103/50 L Blood Pressure Mean 67 Blood Pressure Location Left Arm Blood Pressure Position Supine O2 Sat by Pulse Oximetry 95 Oxygen Delivery Method Room Air Room Air Room Air Telemetry Type Telemetry Monitoring Telemetry Heart Rate EKG ME Interval EKG QRS Interval Telemetry Strip Reading 11/15/23 04:00 11/15/23 05:00 11/15/23 05:14 Temperature 97.8 F Temperature Source Temporal Artery Scan Pulse Rate 74 Respiratory Rate 16 Blood Pressure 102/57 L Blood Pressure Mean 72 Blood Pressure Location Left Arm Blood Pressure Position Supine O2 Sat by Pulse Oximetry 93 L Oxygen Delivery Method Room Air Room Air Room Air Telemetry Type Telemetry Monitoring Telemetry Heart Rate EKG ME Interval EKG QRS Interval Telemetry Strip Reading 11/15/23 06:00 11/15/23 07:00 11/15/23 08:00 Temperature Temperature Source Pulse Rate Respiratory Rate Blood Pressure Blood Pressure Mean Blood Pressure Location Blood Pressure Position O2 Sat by Pulse Oximetry Oxygen Delivery Method Room Air Room Air Room Air Telemetry Type Telemetry Monitoring Telemetry Heart Rate EKG ME Interval EKG QRS Interval Telemetry Strip Reading 11/15/23 09:00 Temperature Temperature Source Pulse Rate Respiratory Rate Blood Pressure Blood Pressure Mean Blood Pressure Location Blood Pressure Position O2 Sat by Pulse Oximetry Oxygen Delivery Method Room Air Telemetry Type Telemetry Monitoring Telemetry Heart Rate EKG ME Interval EKG QRS Interval Telemetry Strip Reading Lab Results Lab Results: Lab Results: Last 24 Hours 11/15/23 05:25 WBC 21.01 H D RBC 3.30 L Hgb 10.5 L Hct 32.3 L MCV 97.9 MCH 31.8 H MCHC 32.5 RDW Coeff of Staci 12.8 Plt Count 283 Immature Gran % (Auto) 1.2 Neut % (Auto) 92.7 H Lymph % (Auto) 3.4 L [place] % (Auto) 2.6 Eos % (Auto) 0.0 Baso % (Auto) 0.1 Neut # (Auto) 19.5 H Lymph # (Auto) 0.7 [place] # (Auto) 0.5 Eos # (Auto) 0.0 Baso # (Auto) 0.0 Immature Gran # (Auto) 0.3 Sodium 135.0 Potassium 4.00 Chloride 108.4 H Carbon Dioxide 21.3 L Anion Gap 9.30 BUN 19.6 H Creatinine 0.96 Estimated GFR (MDRD) 56.00 BUN/Creatinine Ratio 20.41 Glucose 138.7 H Calcium 8.46 Total Bilirubin 0.48 AST 24.1 ALT 13.1 Alkaline Phosphatase 55.9 Total Protein 5.94 L Albumin 3.15 L Globulin 2.79 Albumin/Globulin Ratio 1.12 Procalcitonin < 0.05 Additional Comments Additional Comments: I have independently reviewed and interpreted the labs/EKGs/imaging ordered during this hospital stay. I have reviewed outside records that are available in our EMR that pertain to medical stay including imaging/notes/labs from previous visits. Active Medications Active Medications: Medications Generic Name Dose Route Start Last Admin Trade Name Freq PRN Reason Stop Dose Admin Acetaminophen 650 mg 11/13/23 17:47 Acetaminophen 325 Mg Tablet PO Q4H PRN Mild Pain Albuterol Sulfate 2.5 mg 11/13/23 17:47 Albuterol Sulfate 0.083% Vial.Neb NEB RTQ4H PRN Wheezing Albuterol/Ipratropium 3 ml 11/13/23 18:00 11/15/23 05:35 Ipratropium/Albuterol Vial.Neb NEB 3 ml RTQ6H JATIN Administration Benzonatate 100 mg 11/13/23 21:01 11/14/23 12:51 Benzonatate 100 Mg Capsule PO 100 mg TID PRN Administration Cough Ergocalciferol 50,000 unit 11/20/23 09:00 Ergocalciferol (Vitamin D2) 50,000 Unit Capsule PO WEEKLY JATIN CEFTRIAXONE/D5W 1 GM PREMIX 1 gm in 50 mls @ 100 mls/hr 11/14/23 09:00 11/15/23 08:50 Rocephin 1 Gm/50 Ml D5w IV 11/17/23 08:59 100 mls/hr DAILY JATIN Administration Doxycycline Hyclate 100 mg/ 100 mls @ 50 mls/hr 11/14/23 08:00 11/15/23 08:51 Sodium Chloride IV 11/17/23 07:59 50 mls/hr Q12HR JATIN Administration Sodium Chloride 1,000 mls @ 100 mls/hr 11/15/23 09:00 11/15/23 08:57 Sodium Chloride IV 100 mls/hr .Q10H JATIN Administration Methylprednisolone Sodium Succinate 40 mg 11/13/23 21:00 11/15/23 05:28 Methylprednisolone Sod Succ/Pf 40 Mg/Ml Vial IVP 40 mg Q8HR JATIN Administration Non-Formulary Medication 60 mg 11/14/23 09:00 11/15/23 09:09 Raloxifene PO Not Given DAILY JATIN Ondansetron HCl 4 mg 11/13/23 21:01 11/15/23 08:57 Ondansetron Hcl/Pf 4 Mg/2 Ml Sdv IVP 4 mg Q6H PRN Administration Nausea / Vomiting Pantoprazole Sodium 40 mg 11/14/23 08:30 11/15/23 05:29 Pantoprazole Sodium 40 Mg Tablet. PO 40 mg BIDAC2 JATIN Administration Promethazine HCl/Codeine 5 ml 11/14/23 16:49 11/15/23 08:50 Promethazine/Codeine Syrup 6.25/10 Mg/5 Ml Disp.Syringe PO 5 ml Q4H PRN Administration Cough Sucralfate 1 gm 11/14/23 08:30 11/15/23 05:28 Sucralfate 1 Gm Tablet PO 1 gm ACHS2 JATIN Administration Tramadol HCl 50 mg 11/14/23 08:08 Tramadol Hcl 50 Mg Tablet PO TID PRN Pain Plan Plan: 1. Community Acquired Pneumonia - failed outpatient treatment, rocephin and doxycycline due to allergies, nebs, steroids, sputum culture 2. RSV - isolation, symptom management 3. Hypertension - chronic, holding home medications due to low BP 4. GERD - chronic, continue home medications 5. Dehydration - mildly tachycardic, BP soft, NS@100mL/hr DVT Prophylaxis: Ambulation Review Statement Review Statement: I have personally discussed and reviewed the patient's visit/currently labs/imaging/decision making with Dr. Rodríguez, my supervising attending. Greater that 50 minutes spent with patient, 50% of the time spent with this patient was devoted to counseling and coordination of care.
[2023-11-16 02:35] VITALS: RESP 18
[2023-11-16 05:48] LABS: BASOPHILS % (AUTO) 0.1 % (0.0-3.0); HEMOGLOBIN 9.7 g/dl (12.0-16.0); IMMATURE GRANULOCYTE # (AUTO) 0.3 (0.0-1.0); IMMATURE GRANULOCYTE % (AUTO) 1.4 % (0.0-5.0); LYMPHOCYTES # (AUTO) 0.5 K/uL (0.60-3.4); LYMPHOCYTES % (AUTO) 2.7 (10.0-50.0); MEAN CORPUSCULAR HEMOGLOBIN 32.2 pg (27.0-31.0); MEAN CORPUSCULAR HGB CONC 32.3 (31.8-35.4); MEAN CORPUSCULAR VOLUME 99.7 fl (81.0-99.0); MONOCYTES # (AUTO) 0.4 K/uL (0.4-2.0); MONOCYTES % (AUTO) 2.2 (0-10); NEUTROPHILS # (AUTO) 18.1 K/ul (2.0-6.9); NEUTROPHILS % (AUTO) 93.6 % (42.2-75.2); PLATELET COUNT 260 10^3/uL (140-440); RDW COEFFICIENT OF VARIATION 13.1 % (11.6-14.8); RED BLOOD COUNT 3.01 10^6/ul (4.20-5.40); WHITE BLOOD COUNT 19.32 K/ul (4.6-10.2)
[2023-11-16 05:53] LABS: ALANINE AMINOTRANSFERASE 16.8 U/L (0-35); ALBUMIN 2.8 g/dL (3.5-5.0); ALKALINE PHOSPHATASE 64.9 U/L (53-141); ASPARTATE AMINO TRANSFERASE 34.8 U/L (14-36); BILIRUBIN,TOTAL 0.32 mg/dL (0.2-1.3); BLOOD UREA NITROGEN 19.6 mg/dL (7-17); CALCIUM 7.64 mg/dL (8.4-10.2); CARBON DIOXIDE 20.4 mmol/L (22-30.0); CHLORIDE 110.1 mmol/L (98-107); CREATININE 0.92 mg/dL (0.60-1.30); POTASSIUM 3.57 mmol/L (3.5-5.1); SODIUM 135.7 mmol/L (134.5-145); TOTAL PROTEIN 5.43 g/dL (6.3-8.2)
[2023-11-16 05:55] VITALS: BP 122/66
--- NOTE | 2023-11-16 08:37 | DCSUM ---
Admission Date Admission Date: 11/13/23 Discharge Date Discharge Date: 11/16/23 Admission Diagnosis Admission Diagnosis: 1. Community Acquired Pneumonia 2. RSV 3. Hypertension 4. GERD Discharge Diagnosis Discharge Diagnosis: 1. Community Acquired Pneumonia - Improving 2. RSV - Improving 3. Hypertension - BP low during stay, stopped lisinopril 4. GERD - Chronic, stable Hospital Provider Hospital Provider: ANGÉLICA CHAMPAGNE, [facility] Primary Care Physician Primary Care Physician: HALIMA MCCULLOUGH Summary of History and Physical Summary of History and Physical: 83 yo female presented to the ER with complaints of weakness, shortness of breath, and cough. Patient states that she has been sick for a total of 3 weeks. Saw her PCP last week and was prescribed a z pack and steroids. She completed course of both of these on Friday and still has not improved. Denies fever that she is aware of, chest pain, n/v/d. She was found to have RSV in the ER as well as pneumonia. She was admitted to Med/surg observation. Hospital Course Subjective: During course of stay, patient receiving rocephin and doxycycline for treatment of pneumonia and RSV in addition to nebs and steroids. Has also required tessalon pearls and promethazine/codeine for dry cough. Sputum culture negative. Has not had fever or required oxygen during stay. Has reactive leukocytosis secondary to steroid use. Has had intermittent tachycardia. Started on metoprolol 25 mg daily. PCP to follow BP has been on lower end and held lisinopril during stay. Stopped due to started metoprolol. No other changes to home medications. Appearance: Pleasant, No Apparent Distress and Alert HEENT: MMM, Supple and No JVD CVS: No Murmur and No Rubs Abdomen: Soft, Non-Tender and No Distention Respiratory: No Dyspnea Extremities: No Edema Vital Signs: Most Recent Vital Signs Temperature 97.5 F L 11/16/23 05:54 Temperature Source Oral 11/16/23 05:54 Temperature Source Infrared 11/13/23 13:42 Pulse Rate 98 11/16/23 05:54 Respiratory Rate 18 11/16/23 08:00 Blood Pressure 122/66 11/16/23 05:54 Blood Pressure Mean 84 11/16/23 05:54 Blood Pressure Left Arm 159/85 11/13/23 20:05 Blood Pressure Location Right Arm 11/16/23 05:54 Blood Pressure Position Supine 11/16/23 05:54 O2 Sat by Pulse Oximetry 95 11/16/23 05:54 Oxygen Delivery Method Room Air 11/16/23 08:00 Height 5 ft 4 in 11/15/23 19:32 Weight 123 lb 7 oz 11/15/23 19:32 Telemetry Type Remote Telemetry 11/16/23 07:00 Telemetry Monitoring Continues 11/16/23 07:00 Telemetry Heart Rate 92 11/16/23 07:00 EKG FL Interval 0.23 H 11/16/23 07:00 EKG QRS Interval 0.12 H 11/16/23 07:00 Telemetry Strip Reading SR with AVB, BBB 11/16/23 07:00 Lab Results Last 24 Hours: 11/16/23 11/15/23 05:19 05:25 WBC 19.32 H RBC 3.01 L Hgb 9.7 L Hct 30.0 L MCV 99.7 H MCH 32.2 H MCHC 32.3 RDW Coeff of Staci 13.1 Plt Count 260 Immature Gran % (Auto) 1.4 Neut % (Auto) 93.6 H Lymph % (Auto) 2.7 L [place] % (Auto) 2.2 Eos % (Auto) 0.0 Baso % (Auto) 0.1 Neut # (Auto) 18.1 H Lymph # (Auto) 0.5 L [place] # (Auto) 0.4 Eos # (Auto) 0.0 Baso # (Auto) 0.0 Immature Gran # (Auto) 0.3 Sodium 135.7 Potassium 3.57 Chloride 110.1 H Carbon Dioxide 20.4 L Anion Gap 8.77 BUN 19.6 H Creatinine 0.92 Estimated GFR (MDRD) 58.00 BUN/Creatinine Ratio 21.30 Glucose 128.0 H Calcium 7.64 L Total Bilirubin 0.32 AST 34.8 ALT 16.8 Alkaline Phosphatase 64.9 Total Protein 5.43 L Albumin 2.80 L Globulin 2.63 Albumin/Globulin Ratio 1.06 Procalcitonin < 0.05 Discharge Instructions Discharge Planning: Discharge Planning > 40 minutes If patient is discharged with left ventricular systolic dysfunction: NA Discharged with a beta aline? [] If no, why not? [] Discharged with an ros/arb? [] If no, why not? [] DX: CAP, RSV RX: KEFLEX, DOXYCYCLINE, TESSALON PEARLS, PROMETHAZINE W CODEINE, METOPROLOL REGULAR DIET ACTIVITY TOLERATED FOLLOW-UP WITH PCP THIS WEEK Discharge Medications: Medications at Discharge (Home Meds & RX) calcium 600 mg capsule 1,200 mg PO BID 05/15/21 cranberry fruit 450 mg tablet (cranberry) 450 mg PO BID 05/15/21 esomeprazole magnesium 40 mg capsule,delayed release (Nexium) 40 mg PO BID 05/15/21 lisinopril 20 mg tablet 20 mg PO DAILY 05/15/21 raloxifene 60 mg tablet 60 mg PO DAILY 05/15/21 sucralfate 1 gram tablet 1 mg PO QID 05/15/21 tramadol 50 mg tablet 50 mg PO TID PRN joint pain #30 tabs 05/15/21 tramadol 50 mg tablet 50 mg PO TID PRN pain #30 tabs 05/15/21 tramadol 50 mg tablet 100 mg PO DAILY 05/15/21 ergocalciferol (vitamin D2) 1,250 mcg (50,000 unit) capsule (Vitamin D2) 1,250 mcg PO DAILY 11/13/23 Discharge Plan Discharge Discharge Orders: Discharge Patient (ONCE); Ordered 11/16/23 Ordered By: FABIENNE LUO Activity Restrictions/Additional Instructions: Regular diet Activity as tolerated Follow-up with PCP next week Medications: At [facility] 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 11/15: Tessalon pearls may take up to 3 times a day as needed for cough Promethazine/codeine take 5 mL every 4 hours as needed for cough, do not drive after taking this medication At [facility] 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 11/16: Keflex 500 mg twice a day for 3 days Doxycycline 100 mg twice a day for 3 days Metoprolol succinate 25 mg take 1 daily for heart rate and blood pressure Instructions: Community Acquired Pneumonia (GEN), RSV (Respiratory Syncytial Virus) Infection (GEN) Patient Disposition: HOME SELF-CARE Prescriptions: New benzonatate 100 mg Capsule 100 mg PO TID PRN (Reason: cough) Qty: 30 0RF promethazine-codeine 6.25-10 mg/5 mL Syrup 5 ml PO Q4H PRN (Reason: cough) Qty: 100 0RF metoprolol succinate [Toprol XL] 25 mg Tablet Extended Release 24 Hr 25 mg PO DAILY Qty: 30 0RF cephalexin 500 mg capsule 500 mg PO BID Qty: 6 0RF doxycycline monohydrate 100 mg capsule 100 mg PO BID Qty: 6 0RF Continued calcium 600 mg Capsule 1,200 mg PO BID sucralfate 1 gram tablet 1 mg PO QID tramadol 50 mg tablet 100 mg PO DAILY esomeprazole magnesium [Nexium] 40 mg Capsule,Delayed Release(Dr/Ec) 40 mg PO BID raloxifene 60 mg tablet 60 mg PO DAILY cranberry 450 mg Tablet 450 mg PO BID tramadol 50 mg tablet 50 mg PO TID PRN (Reason: pain) Qty: 30 0RF tramadol 50 mg tablet 50 mg PO TID PRN (Reason: joint pain) Qty: 30 0RF ergocalciferol (vitamin D2) [Vitamin D2] 1,250 mcg (50,000 unit) capsule 1,250 mcg PO DAILY Discontinued lisinopril 20 mg tablet 20 mg PO DAILY Did you review [place] [employer] for ALL controlled substances?: No Discussed opioids are addictive and Narcan is available by prescription or from pharmacy.: No Condition: Stable
[2023-11-16] MEDS: TOPROL XL PO SCH (08:47)
[2023-11-16 09:43] VITALS: PULSE 100; TEMP 97.6
[2023-11-20] MEDS ORDERED: DRISDOL PO SCH (09:00)
== END 2023-11-16 12:50 | disposition home or self-care (01) ==
LOC: MEDSURG B 13:41 → ED 13:41 → MEDSURG B 20:17
PROVIDERS: ADMIT Hospitalist; ATTEND Nurse Practitioner Family
DX: Z20.822 Contact with and (suspected) exposure to COVID-19; K21.9 Gastro-esophageal reflux disease without esophagitis; J12.1 Respiratory syncytial virus pneumonia; I10 Essential (primary) hypertension; E87.6 Hypokalemia; K44.9 Diaphragmatic hernia without obstruction or gangrene

== ENCOUNTER 2023-11-23 17:29 | Inpatient (IN) ==
--- NOTE | 2023-11-23 17:35 | ED.PDOC ---
General ED Provider: Dr. ADIN PRITCHARD DO Chief Complaint: Altered Mental Status Stated Complaint: 85 year old female recently hospitalized and treated for RSV + PNA who was BIBEMS found down covered with her own feces and urine. LKW was Friday. Patient noted to be in afib on EMS arrival and nonverbal with left sided hemiplegia and left hemineglect. Patient lives alone and is ambulatory at baseline. Patient unable to participate in ANTONIA or HPI due to AMS. Patient has no family in the area and was found by her neighbors and fellow sabianist goers. Time Seen by Provider: 11/23/23 17:35 Primary Care Provider: HALIMA MCCULLOUGH Nursing and Triage Documentation Reviewed and Agree: Yes What is Opioid Naive?: *Opioid Naive implies the patient is not already taking opioids or not chronically receiving opioids on a daily basis. *PRN dosing is not "usually" associated with tolerance. *Patients are at higher risk of over-sedation and aspiration. What is Opioid Tolerant?: *Opioid Tolerance implies less than the expected response to an opioid. *Acquired tolerance is defined by the patient taking 60mg of oral morphine daily (or equianalgesic dose of another opioid) for 1 week or more. *Often associated with chronic pain. *May take more than usual dose to achieve desired pain control. Review of Systems Review Of Systems Constitutional: Reports No symptoms All Other Systems: Reviewed and Negative [facility] Medical History Diverticulitis K57.92 - Diverticulitis of intestine, part unspecified, without perforation or abscess without bleeding (ICD-10) Hypertension I10 - Essential (primary) hypertension (ICD-10) Family History FATHER Heart attack Lung disease Social History Smoking and tobacco status: Never smoker Alcohol intake: never Substance use type: does not use Household members: none Lives independently: Yes Number of children: 0 Current occupational status: disabled History of recent travel: No Current diet type/program: regular Surgical History History of tonsillectomy Z90.89 - Acquired absence of other organs (ICD-10) History of appendectomy Z90.49 - Acquired absence of other specified parts of digestive tract (ICD- 10) Hx of cholecystectomy Z90.49 - Acquired absence of other specified parts of digestive tract (ICD- 10) H/O: hysterectomy Z90.710 - Acquired absence of both cervix and uterus (ICD-10) Female Reproductive History Menstrual Hx Hysterectomy: Yes Hx Tubal Ligation: No Physical Exam Physical Exam Appearance: Reports Ill-appearing (rigors on arrival and found down covered in feces and urine. ), Thin and Other (+ rigors) Ill-appearing: Moderate Pain Distress: None Eyes: Reports LAURIE, Right pupil size (3 mm) and Left pupil size (3mm) ENT: Reports Ears normal Neck: Supple Respiratory: Reports Airway patent, Breath sounds equal and Breath sounds diminished (bilateral bases) Cardiovascular: Reports Irregular rhythm and Tachycardia GI/: Reports Soft and Nontender Musculoskeletal: Reports No edema and Other (spontaneous movement and retraction from painful stimulus RUE and RLE. Unable to participate in further examination. ) Skin: Reports Warm, Dry and Other (decreased turgor) Neurological: Reports Focal Deficit (left sided hemiplegia and hemineglect. Aphasic. Unable to participate in detailed examination) Psychiatric: Reports Other (unable to assess) NIH Stroke Scale 1a. Level of Consciousness: 2=Not alert, requires repeated stimulation or painful stimulation 1b. Level of Consciousness Questions: 2=Answers correctly to neither 1c. Level of Consciousness Commands: 2=Performs neither correctly 2. Best Gaze: 1=Partial gaze palsy, no forced gaze palsy 3. Visual: 0=No visual loss 4. Facial Palsy: 0=Normal 5a. Motor Left Arm: 4=No movement 5b. Motor Right Arm: 2=Some effort against gravity, drifts to bed 6a. Motor Left Le=No movement 6b. Motor Right Le=Some effort against gravity, drifts to bed 7. Limb Ataxia: 0=Absent 8. Sensory: 1=Mild to moderate sensory loss (no retraction to painful stimulus LUE and RUE) 9. Best Language: 3=Mute, only sounds 10. Dysarthria: 2=Severe, cannot be understood 11. Extincion and Inattention: 2=Profound semi-inattention Stroke Scale Total: 27 Course Course 11/23/23 18:16 11/23/23 18:16 Orders, Labs, Meds: Lab Review 11/23/23 11/23/23 18:16 20:55 WBC 16.05 H RBC 3.92 L Hgb 12.7 Hct 38.7 MCV 98.7 MCH 32.4 H MCHC 32.8 RDW Coeff of Staci 13.1 Plt Count 244 Immature Gran % (Auto) 1.9 Neut % (Auto) 81.3 H Lymph % (Auto) 6.6 L [place] % (Auto) 10.0 Eos % (Auto) 0.0 Baso % (Auto) 0.2 Neut # (Auto) 13.1 H Lymph # (Auto) 1.1 [place] # (Auto) 1.6 Eos # (Auto) 0.0 Baso # (Auto) 0.0 Immature Gran # (Auto) 0.3 PT 10.1 INR 0.97 APTT 29.5 Sodium 142.2 Potassium 3.16 L Chloride 110.6 H Carbon Dioxide 20.6 L Anion Gap 14.16 BUN 37.5 H Creatinine 0.98 Estimated GFR (MDRD) 54.00 BUN/Creatinine Ratio 38.26 Glucose 117.7 H Lactic Acid 2.39 H Calcium 8.73 Total Bilirubin 1.17 AST 41.1 H ALT 19.2 Alkaline Phosphatase 72.4 Troponin I 0.026 Total Protein 6.61 Albumin 3.23 L Globulin 3.38 Albumin/Globulin Ratio 0.95 Plasma/Serum Alcohol < 10.0 SARS CoV-2 RNA Rapid EDVIN Negative Orders Category Date Time Status ADMIT PATIENT INPATIENT .TO [facility] (MONITORED BED) ADMISSION 11/23/23 21:43 Completed EKG-(ED ONLY) Stat CARDIO 11/23/23 17:36 Completed ACTIVITY .Complete BR CARE 11/23/23 21:46 Completed INTAKE & OUTPUT Q8HR CARE 11/23/23 21:46 Completed TELEMETRY MONITORING TELE CARE 11/23/23 21:39 Completed TELEMETRY MONITORING TELE CARE 11/23/23 21:44 Completed VITAL SIGNS Q8HR CARE 11/23/23 21:46 Completed NOTHING BY MOUTH DIETARY 11/24/23 Breakfast Completed ED ACCUCHECK ASSESSMENT .ONCE EMERGENCY 11/23/23 17:36 Completed ED APPLY O2 .ONCE EMERGENCY 11/23/23 17:36 Completed ED IV/MEDIPORT/POWERPORT .ONCE EMERGENCY 11/23/23 17:36 Completed O2 [ED APPLY O2] .ONCE EMERGENCY 11/23/23 19:53 Completed BLOOD ALCOHOL Stat LAB 03/10/24 18:16 Completed BLOOD CULTURE Stat LAB 11/23/23 17:43 Completed CBC W/ AUTO DIFF Stat LAB 11/23/23 18:16 Completed COMPREHENSIVE METABOLIC PANEL Stat LAB 11/23/23 18:16 Completed LACTIC ACID Stat LAB 11/23/23 18:16 Completed PARTIAL THROMBOPLASTIN TIME Stat LAB 11/23/23 18:16 Completed PT WITH INR Stat LAB 11/23/23 18:16 Completed SARS COV-2 RNA RAPID EDVIN Stat LAB 11/23/23 20:55 Completed TROPONIN I Stat LAB 11/23/23 18:16 Completed 0.9 % Sodium Chloride [Saline Flush] Meds 11/23/23 17:35 Discontinued 1 syr IVF PRN PRN Acetaminophen [Tylenol] Meds 11/23/23 21:46 Discontinued 650 mg RC Q6HR PRN Aspirin Meds 11/23/23 19:51 Discontinued 300 mg RC ONCE STA Lorazepam [Ativan] Meds 11/23/23 21:46 Discontinued 2 mg IVP Q4HR PRN Morphine Sulfate [Morphine 2 mg/ml Syringe] Meds 11/23/23 21:46 Discontinued 2 mg IVP Q6H PRN Sodium Chloride 0.9% [Sodium Chloride] 1,000 ml Meds 11/23/23 17:35 Discontinued IV 30 mls/hr Sodium Chloride 0.9% [Sodium Chloride] 1,000 ml Meds 11/23/23 17:35 Discontinued IV 50 mls/hr Sodium Chloride 0.9% [Sodium Chloride] 1,000 ml Meds 11/23/23 19:09 Discontinued IV BOLUS Sodium Chloride 0.9% [Sodium Chloride] 1,000 ml Meds 11/23/23 19:[address] HEAD W/O CONTRAST Stat RADS 11/23/23 17:36 Completed Medications Discontinued Medications Generic Name Dose Route Start Last Admin Trade Name Freq PRN Reason Stop Dose Admin Acetaminophen 650 mg 11/23/23 21:46 Acetaminophen 650 Mg Supp.Rect RC Q6HR PRN pain Aspirin 300 mg 11/23/23 19:51 11/23/23 20:15 Aspirin 300 Mg Supp.Rect RC 11/23/23 19:52 300 mg ONCE STA Administration Sodium Chloride 1,000 mls @ 50 mls/hr 11/23/23 17:35 11/23/23 19:25 Sodium Chloride IV 11/24/23 13:34 Not Given .Q20H STA Sodium Chloride 1,000 mls @ 30 mls/hr 11/23/23 17:35 11/23/23 19:25 Sodium Chloride IV 11/25/23 02:54 Not Given .[id number] STA Sodium Chloride 1,000 mls @ 1,000 mls/hr 11/23/23 19:09 11/23/23 20:22 Sodium Chloride IV 11/23/23 20:08 Infused BOLUS ONE Infusion Sodium Chloride 1,000 mls @ 500 mls/hr 11/23/23 19:52 11/23/23 22:19 Sodium Chloride IV 11/23/23 21:51 Infused BOLUS ONE Infusion Lorazepam 2 mg 11/23/23 21:46 Lorazepam Inj 2 Mg/Ml Vial IVP Q4HR PRN Agitation Lorazepam 2 mg 11/24/23 09:33 Lorazepam Inj 2 Mg/Ml Vial IVP Q2H PRN Agitation Lorazepam 2 mg 11/24/23 10:00 11/24/23 14:07 Lorazepam Inj 2 Mg/Ml Vial IVP 2 mg Q2H JATIN Administration Morphine Sulfate 2 mg 11/23/23 21:46 11/24/23 09:14 Morphine Sulfate 2 Mg/Ml Syringe IVP 2 mg Q6H PRN Administration Pain Morphine Sulfate 2 mg 11/24/23 09:33 Morphine Sulfate 2 Mg/Ml Syringe IVP Q2H PRN Pain Morphine Sulfate 2 mg 11/24/23 10:00 11/24/23 14:08 Morphine Sulfate 2 Mg/Ml Syringe IVP 2 mg Q2H JATIN Administration Scopolamine HBr 1 patch 11/24/23 09:45 11/24/23 10:58 Scopolamine Hydrobromide 1.5 Mg Patch.Td72 TD 1 patch Q72HR JATIN Administration Sodium Chloride 1 syr 11/23/23 17:35 11/24/23 11:25 0.9% Sodium Chloride 10 Ml Disp.Syrin IVF 1 syr PRN PRN Administration To flush IV Vital Signs: Temp Pulse Resp BP Pulse Ox O2 Flow Rate 11/23/23 19:30 2 11/23/23 17:54 97.5 F L 118 H 24 H 165/74 H 97 Physician Progress Note: 85 year old female recently hospitalized and treated for RSV + PNA who was BIBEMS found down covered with her own feces and urine. Unknown LNW. Patient noted to be in afib on EMS arrival and nonverbal with left sided hemiplegia and left hemineglect. Patient noted to elect DNR during last hospitalization. I consulted a neurologist at [facility] who verifies patients prognosis is likely poor and that she is out of any window for intervention. Per patients friends and medical POA patient under no circumstances wanted to be placed into any intermediate school teacher care facility, rehab, or SNIF. POA confirmed via phone call and states patient preferred this hospital and would have wanted comfort measures/hospice care only. Discussed with hospitalist automation controls engineer and accepts. Discharge Plan Discharge Patient Disposition: ADMITTED INPATIENT Discharge Problem: Acute CVA (cerebrovascular accident), Admission for palliative care Atrial fibrillation Qualifiers: Atrial fibrillation type: unspecified Qualified Code(s): I48.91 - Unspecified atrial fibrillation Did you review [place] SHIFT MECHANIC for ALL controlled substances?: Not Applicable ED Provider: ADIN PRITCHARD Condition: Poor [place] Coma Scale Angie Coma Scale Eye Opening Response: Spontaneously Best Verbal Response: Incomprehensible Sounds Best Motor Resposne: Moves to Localized Pain [place] Coma Scale Score Total: 11 Response Scores: Best Response = 15 Comatose Client = 8 or Less Totally Unresponsive = 3
--- NOTE | 2023-11-23 18:19 | CT ---
EXAM: CT BRAIN HISTORY: Altered level of consciousness TECHNIQUE: CT brain without intravenous contrast. 5-mm axial sections with Reformations. COMPARISON: 06/10/2023 FINDINGS: There is generalized cerebral volume loss. There is moderately severe periventricular and deep white matter low attenuation which although nonspecific is suggestive of chronic microvascular ischemic ch miriam. Intracranial atherosclerotic disease. In the right frontal lobe, there is a 3.8 cm region of relative low attenuation with loss of peripheral sulcal architecture suggesting a regional subacute i nfarction. No noticeable mass effect or hemorrhage. No acute ventriculomegaly. Basal cisterns are patent. The cranium is intact. Mastoid process air cells are aerated. Partial opacification of the right frontal sinus. IMPRESSION: In the right frontal lobe, there is a 3.8 cm region of relative low attenuation with loss of peripheral sulcal architecture suggesting a regional subacute infarction. No noticeable mass eff ect or hemorrhage. - - - - - All CT scans are performed using dose optimization techniques as appropriate to the performed exam an d include at least one of the following: Automated exposure control, adjustment of the mA and/or kV according t o size, and the use of iterative reconstruction technique.
[2023-11-23 18:36] LABS: BASOPHILS % (AUTO) 0.2 % (0.0-3.0); HEMATOCRIT 38.7 % (37.0-47.0); HEMOGLOBIN 12.7 g/dl (12.0-16.0); IMMATURE GRANULOCYTE # (AUTO) 0.3 (0.0-1.0); IMMATURE GRANULOCYTE % (AUTO) 1.9 % (0.0-5.0); LYMPHOCYTES # (AUTO) 1.1 K/uL (0.60-3.4); LYMPHOCYTES % (AUTO) 6.6 (10.0-50.0); MEAN CORPUSCULAR HEMOGLOBIN 32.4 pg (27.0-31.0); MEAN CORPUSCULAR HGB CONC 32.8 (31.8-35.4); MEAN CORPUSCULAR VOLUME 98.7 fl (81.0-99.0); MONOCYTES # (AUTO) 1.6 K/uL (0.4-2.0); NEUTROPHILS # (AUTO) 13.1 K/ul (2.0-6.9); NEUTROPHILS % (AUTO) 81.3 % (42.2-75.2); PLATELET COUNT 244 10^3/uL (140-440); RDW COEFFICIENT OF VARIATION 13.1 % (11.6-14.8); RED BLOOD COUNT 3.92 10^6/ul (4.20-5.40); WHITE BLOOD COUNT 16.05 K/ul (4.6-10.2)
[2023-11-23 18:48] LABS: PARTIAL THROMBOPLASTIN TIME 29.5 SEC (23.9-40.0); PROTHROMBIN TIME 10.1 SEC (9.3-11.0)
[2023-11-23 18:49] LABS: ALANINE AMINOTRANSFERASE 19.2 U/L (0-35); ALBUMIN 3.23 g/dL (3.5-5.0); ALKALINE PHOSPHATASE 72.4 U/L (53-141); ASPARTATE AMINO TRANSFERASE 41.1 U/L (14-36); BILIRUBIN,TOTAL 1.17 mg/dL (0.2-1.3); BLOOD UREA NITROGEN 37.5 mg/dL (7-17); CALCIUM 8.73 mg/dL (8.4-10.2); CARBON DIOXIDE 20.6 mmol/L (22-30.0); CHLORIDE 110.6 mmol/L (98-107); CREATININE 0.98 mg/dL (0.60-1.30); GLUCOSE 117.7 mg/dL (74-106); POTASSIUM 3.16 mmol/L (3.5-5.1); SODIUM 142.2 mmol/L (134.5-145); TOTAL PROTEIN 6.61 g/dL (6.3-8.2)
[2023-11-23] MEDS: SODIUM CHLORIDE 1,000 ML IV ONE ×2 (19:22→20:26)
[2023-11-23] MEDS: SODIUM CHLORIDE 1,000 ML IV STA ×2 (19:25)
[2023-11-23] MEDS: ASPIRIN RC STA (20:15)
[2023-11-23 21:17] LABS: SARS COV-2 RNA RAPID NAAT NEGATIVE (NEGATIVE)
[2023-11-23] MEDS ORDERED: TYLENOL RC PRN (21:46)
[2023-11-23] MEDS ORDERED: ATIVAN IVP PRN (21:46)
[2023-11-23 23:20] VITALS: BMI 20.4
[2023-11-24] MEDS: MORPHINE 2 MG/ML SYRINGE IVP PRN (01:45)
[2023-11-24 02:57] VITALS: TEMP 97.1
[2023-11-24] MEDS ORDERED: MORPHINE 2 MG/ML SYRINGE IVP PRN (09:33)
[2023-11-24] MEDS ORDERED: ATIVAN IVP PRN (09:33)
--- NOTE | 2023-11-24 09:33 | PCM.SS ---
Provider Provider: ANGÉLICA CHAMPAGNE, [facility] ([facility]3]ist Group Admission Date Admission Date: 11/23/23 Discharge Date Discharge Date: 11/24/23 Primary Care Physician Primary Care Physician: HALIMA MCCULLOUGH Chief Complaint Reason For Visit: ACUTE CVA History of Present Illness History of Present Illness: Admitted 11/23/23 21:51, this 83 year old /WHITE/F presented to the ER with altered mental status. Patient lives at home alone and was last seen on Friday. She was found yesterday by her neighbors and members of her voodoo lying in the floor in urine and feces, nonverbal, and unable to move the left side of her body. Head CT revealed 3.8 cm region of relative low attenuation with loss of peripheral sulcal architecture suggesting a regional subacute infarction. She was also found to be in A fib on EMS arrival which is new onset. Patient has Leila ZENG appointed for all decisions due to no family in area. She elected to comfort measures prior to admission. Patient admitted to med/surg for hospice care. Patient unable to participate in ANTONIA or HPI due to AMS. She is able to open her eyes and move her right upper extremity. Unable to eat or drink due to significant left side neglect and dysphagia. [facility] Medical History Diverticulitis K57.92 - Diverticulitis of intestine, part unspecified, without perforation or abscess without bleeding (ICD-10) Hypertension I10 - Essential (primary) hypertension (ICD-10) Surgical History History of tonsillectomy Z90.89 - Acquired absence of other organs (ICD-10) History of appendectomy Z90.49 - Acquired absence of other specified parts of digestive tract (ICD- 10) Hx of cholecystectomy Z90.49 - Acquired absence of other specified parts of digestive tract (ICD- 10) H/O: hysterectomy Z90.710 - Acquired absence of both cervix and uterus (ICD-10) Family History FATHER Heart attack Lung disease Social History Smoking and tobacco status: Never smoker Alcohol intake: never Substance use type: does not use Household members: none Lives independently: Yes Number of children: 0 Current occupational status: disabled History of recent travel: No Current diet type/program: regular Medications Mecications: Medications at Discharge (Home Meds & RX) calcium 600 mg capsule 1,200 mg PO BID 05/15/21 cranberry fruit 450 mg tablet (cranberry) 450 mg PO BID 05/15/21 esomeprazole magnesium 40 mg capsule,delayed release (Nexium) 40 mg PO BID 05/15/21 raloxifene 60 mg tablet 60 mg PO DAILY 05/15/21 sucralfate 1 gram tablet 1 mg PO QID 05/15/21 tramadol 50 mg tablet 50 mg PO TID PRN joint pain #30 tabs 05/15/21 tramadol 50 mg tablet 50 mg PO TID PRN pain #30 tabs 05/15/21 tramadol 50 mg tablet 100 mg PO DAILY 05/15/21 ergocalciferol (vitamin D2) 1,250 mcg (50,000 unit) capsule (Vitamin D2) 1,250 mcg PO DAILY 11/13/23 benzonatate 100 mg capsule 100 mg PO TID PRN cough #30 caps 11/16/23 cephalexin 500 mg capsule 500 mg PO BID #6 caps 11/16/23 doxycycline monohydrate 100 mg capsule 100 mg PO BID #6 caps 11/16/23 metoprolol succinate 25 mg tablet,extended release 24 hr (Toprol XL) 25 mg PO DAILY #30 tabs 11/16/23 promethazine 6.25 mg-codeine 10 mg/5 mL syrup 5 ml PO Q4H PRN cough #100 mL 11/16/23 Allergies Allergies Allergy/AdvReac Type Severity Reaction Status Date / Time clarithromycin AdvReac Verified 11/13/23 14:14 furosemide [From Lasix] AdvReac Hives Verified 11/13/23 13:54 levofloxacin AdvReac Hives Verified 11/13/23 13:54 mirtazapine AdvReac Verified 11/13/23 14:14 pantoprazole AdvReac Hives Verified 11/13/23 13:54 Penicillins AdvReac Hives Verified 11/13/23 13:54 Physical Examination Appearance: Positive Ill-Appearing and Thin Head: Positive Normocephalic and Atraumatic Eyes: Positive Right Pupil Size (1mm), Left Pupil Size (1mm) and Other (fixed, constricted pupils) ENT: Positive Dry Mucosa Neck: Positive Supple, Non-Tender, No Masses and No Lynphadenopathy Heart: Positive RRR and No Murmurs Respiratory: Positive Airway patent, Breath Sounds Clear, Bilaterally, Breath Sounds Equal and Respirations Nonlabored GI/: Positive Soft, Nontender, Bowel sounds normal and No Distention Extremities: Positive Pedal Pulses Palpable Bilaterally Neurological: Positive Alert to Verbal and Other (Lethargic, nonverbal) Vital Signs (Last 4 Hours) Vital Signs Last 4 Hours: Vital Signs: Last 4 Hours 11/24/23 07:00 11/24/23 08:00 Pulse Rate [Apical] 96 Respiratory Rate 18 Oxygen Delivery Method Nasal Cannula Oxygen Flow Rate 2 Telemetry Type Remote Telemetry Telemetry Monitoring Continues Telemetry Heart Rate 114 H Telemetry SPO2 99 EKG LA Interval 0.14 EKG QRS Interval 0.04 L Telemetry Strip Reading SR Labs This Visit Labs This Visit: Labs This Visit 11/23/23 11/23/23 18:16 20:55 WBC 16.05 H RBC 3.92 L Hgb 12.7 Hct 38.7 MCV 98.7 MCH 32.4 H MCHC 32.8 RDW Coeff of Staci 13.1 Plt Count 244 Immature Gran % (Auto) 1.9 Neut % (Auto) 81.3 H Lymph % (Auto) 6.6 L [place] % (Auto) 10.0 Eos % (Auto) 0.0 Baso % (Auto) 0.2 Neut # (Auto) 13.1 H Lymph # (Auto) 1.1 [place] # (Auto) 1.6 Eos # (Auto) 0.0 Baso # (Auto) 0.0 Immature Gran # (Auto) 0.3 PT 10.1 INR 0.97 APTT 29.5 Sodium 142.2 Potassium 3.16 L Chloride 110.6 H Carbon Dioxide 20.6 L Anion Gap 14.16 BUN 37.5 H Creatinine 0.98 Estimated GFR (MDRD) 54.00 BUN/Creatinine Ratio 38.26 Glucose 117.7 H Lactic Acid 2.39 H Calcium 8.73 Total Bilirubin 1.17 AST 41.1 H ALT 19.2 Alkaline Phosphatase 72.4 Troponin I 0.026 Total Protein 6.61 Albumin 3.23 L Globulin 3.38 Albumin/Globulin Ratio 0.95 Plasma/Serum Alcohol < 10.0 SARS CoV-2 RNA Rapid EDVIN Negative Imaging Imaging: EXAM: CT BRAIN HISTORY: Altered level of consciousness TECHNIQUE: CT brain without intravenous contrast. 5-mm axial sections with Reformations. COMPARISON: 06/10/2023 FINDINGS: There is generalized cerebral volume loss. There is moderately severe periventricular and deep white matter low attenuation which although nonspecific is suggestive of chronic microvascular ischemic change. Intracranial atherosclerotic disease. In the right frontal lobe, there is a 3.8 cm region of relative low attenuation with loss of peripheral sulcal architecture suggesting a regional subacute infarction. No noticeable mass effect or hemorrhage. No acute ventriculomegaly. Basal cisterns are patent. The cranium is intact. Mastoid process air cells are aerated. Partial opacification of the right frontal sinus. IMPRESSION: In the right frontal lobe, there is a 3.8 cm region of relative low attenuation with loss of peripheral sulcal architecture suggesting a regional subacute infarction. No noticeable mass effect or hemorrhage. Review Review Statement: I have independently reviewed and interpreted the labs/EKGs/imaging that were ordered by the ER provider. I have reviewed all outside records that are available currently in our EMR including imaging/notes/labs from previous visits. Plan Reccomendations/Plan: 1. Acute CVA 2. New Onset A fib POA, Leila elects comfort measures only and amendable to inpatient hospice care. Current medication orders: morphine 2 mg Q2H IVP ativan 2 mg Q2H IVP scopolamine Q72H [facility] evaluated patient and accepts for inpatient hospice @ 1400. Additional Planning: Case discussed with ED Physician, Dr. Ramirez. DVT Prophylaxis: None, comfort measures Disposition: Admit to: Med/Surg Inpatient Discussed Plan of Care with Dr. Laquita Rodríguez. If patient discharged with Left Ventricular Systolic Dysfunction: NA Discharged with a beta aline? [] If no, why not? [] Discharged with an ros/arb? [] If no, why not? [] ADMIT TO INPATIENT HOSPICE Review With Patient Reviewed with Patient and Family: Patient and family have been counseled on condition and care plan and have no immediate questions. I have personally discussed and reviewed the patient's visit/current labs/imaging/decision making with Dr. Deidre Rodríguez, my supervising attending. Total number of minutes spent with patient 85 min. More than 50% of the time spent with this patient was devoted to counseling and coordination of care. Time of Admission:11/23/23 21:51 Time of Discharge: 11/24/23 1406 Discharge Plan Discharge Discharge Orders: Discharge Patient (ONCE); Ordered 11/24/23 Ordered By: FABIENNE LUO Patient Disposition: [facility] W/I [facility]OSPITAL TO HOSPICE Prescriptions: Discontinued calcium 600 mg Capsule 1,200 mg PO BID sucralfate 1 gram tablet 1 mg PO QID tramadol 50 mg tablet 100 mg PO DAILY esomeprazole magnesium [Nexium] 40 mg Capsule,Delayed Release(Dr/Ec) 40 mg PO BID raloxifene 60 mg tablet 60 mg PO DAILY cranberry 450 mg Tablet 450 mg PO BID tramadol 50 mg tablet 50 mg PO TID PRN (Reason: pain) Qty: 30 0RF tramadol 50 mg tablet 50 mg PO TID PRN (Reason: joint pain) Qty: 30 0RF ergocalciferol (vitamin D2) [Vitamin D2] 1,250 mcg (50,000 unit) capsule 1,250 mcg PO DAILY benzonatate 100 mg Capsule 100 mg PO TID PRN (Reason: cough) Qty: 30 0RF promethazine-codeine 6.25-10 mg/5 mL Syrup 5 ml PO Q4H PRN (Reason: cough) Qty: 100 0RF metoprolol succinate [Toprol XL] 25 mg Tablet Extended Release 24 Hr 25 mg PO DAILY Qty: 30 0RF cephalexin 500 mg capsule 500 mg PO BID Qty: 6 0RF doxycycline monohydrate 100 mg capsule 100 mg PO BID Qty: 6 0RF Did you review [place] LIMB DRIVER for ALL controlled substances?: No Discussed opioids are addictive and Narcan is available by prescription or from pharmacy.: No Condition: Poor
[2023-11-24] MEDS: MORPHINE 2 MG/ML SYRINGE IVP SCH (10:00)
[2023-11-24] MEDS: TRANSDERM-SCOP 1.5 MG PATCH TD SCH (10:58)
[2023-11-24] MEDS: ATIVAN IVP SCH (11:22)
[2023-11-24 14:09] VITALS: BP 118/71; PULSE 102; RESP 15
== END 2023-11-24 14:36 | disposition hospice, inpatient (51) | DRG 57 ==
LOC: ED 17:29 → SCU 21:51
PROVIDERS: ADMIT Hospitalist; ATTEND Nurse Practitioner Family
DX: I48.91 Unspecified atrial fibrillation; Z51.5 Encounter for palliative care; I69.354 Hemiplegia and hemiparesis following cerebral infarction affecting left non-dominant side; I10 Essential (primary) hypertension; I69.020 Aphasia following nontraumatic subarachnoid hemorrhage; Z51.81 Encounter for therapeutic drug level monitoring; R41.82 Altered mental status, unspecified; Z79.899 Other long term (current) drug therapy; Z20.822 Contact with and (suspected) exposure to COVID-19; R68.83 Chills (without fever)

== ENCOUNTER 2023-11-24 14:46 | Inpatient (IN) ==
--- NOTE | 2023-11-24 14:53 | PCM ---
Date of Service Date Seen by Provider: 11/24/23 Time Seen by Provider: 14:45 Admit Day/Time Admission Date: 11/24/23 Reason for Admission Chief Complaint: ACUTE CVA Hospital Provider Hospital Provider: ANGÉLICA CHAMPAGNE, [facility] [place] Care Physician Primary Care Physician: HALIMA MCCULLOUGH History of Present Illness History of Present Illness: 83 yo female initially admitted inpatient following an acute CVA and new onset A fib. Patient is normally ambulatory and lives at home alone. Last known well was on Saturday 11/18 and was found on Wednesday 11/22 in the floor covered and urine and feces. POA elected for patient to be comfort measures only and to be admitted to hospice care. 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 She is admitted to inpatient hospice under the care of [facility]. Patient unable to provide HPI due to above condition. Case Discussed With Case Discussed With: Patient's case was discussed with the ER Physicians, Dr. Ramirez. [facility] Medical History Diverticulitis K57.92 - Diverticulitis of intestine, part unspecified, without perforation or abscess without bleeding (ICD-10) Hypertension I10 - Essential (primary) hypertension (ICD-10) Surgical History History of tonsillectomy Z90.89 - Acquired absence of other organs (ICD-10) History of appendectomy Z90.49 - Acquired absence of other specified parts of digestive tract (ICD- 10) Hx of cholecystectomy Z90.49 - Acquired absence of other specified parts of digestive tract (ICD- 10) H/O: hysterectomy Z90.710 - Acquired absence of both cervix and uterus (ICD-10) Family History FATHER Heart attack Lung disease Social History Smoking and tobacco status: Never smoker Alcohol intake: never Substance use type: does not use Household members: none Lives independently: Yes Number of children: 0 Current occupational status: disabled History of recent travel: No Current diet type/program: regular Allergies Allergies Allergy/AdvReac Type Severity Reaction Status Date / Time clarithromycin AdvReac Verified 11/13/23 14:14 furosemide [From Lasix] AdvReac Hives Verified 11/13/23 13:54 levofloxacin AdvReac Hives Verified 11/13/23 13:54 mirtazapine AdvReac Verified 11/13/23 14:14 pantoprazole AdvReac Hives Verified 11/13/23 13:54 Penicillins AdvReac Hives Verified 11/13/23 13:54 Current Medications Home Lorazepam (Lorazepam Inj 2 Mg/Ml Vial) 2 mg IVP Q2H JATIN Morphine Sulfate (Morphine Sulfate 2 Mg/Ml Syringe) 2 mg IVP Q2H JATIN Scopolamine HBr (Scopolamine Hydrobromide 1.5 Mg Patch.Td72) 1 patch TD Q72HR JATIN Opioid Naive vs. Tolerant Does Patient Take Opioids?: No Is Patient Opioid Naive?: Yes What is Opioid Naive?: *Opioid Naive implies the patient is not already taking opioids or not chronically receiving opioids on a daily basis. *PRN dosing is not "usually" associated with tolerance. *Patients are at higher risk of over-sedation and aspiration. Is Patient Opioid Tolerant?: No What is Opioid Tolerant?: *Opioid Tolerance implies less than the expected response to an opioid. *Acquired tolerance is defined by the patient taking 60mg of oral morphine daily (or equianalgesic dose of another opioid) for 1 week or more. *Often associated with chronic pain. *May take more than usual dose to achieve desired pain control. Physical examination Most Recent Vital Signs: Most Recent Vital Signs Telemetry Heart Rate 99 11/24/23 12:43 Telemetry SPO2 99 11/24/23 12:43 Appearance: Positive Ill-Appearing, Thin and Cachectic Skin: Positive Warm HEENT: Positive Normocephalic and Other (pupils fixed and constricted, 1 mm) Neck: Positive Supple and Midline Trachea Chest/Lungs: Positive Symmetrical With Equal Breath Sounds and Clear to Auscultation Bilaterally Heart: Positive RRR and Pulses Normal GI/: Positive Soft, Nontender, Bowel Sounds Normal, No Distention and No Organomegaly Musculoskeletal: Positive Not Examined Extremities: Positive Intact Peripheral Pulses Neurological: Positive Other (unresponsive, nonverbal, unable to move left extremities) Review Statement Review Statement: I have independently reviewed and interpreted the labs/EKGs/imaging that were ordered by the ER provider. I have reviewed all outside records that are available currently in our EMR including imaging/notes/labs from previous visits. Plan Plan: 1. Acute CVA Hospice care: Morphine 2 mg Q2H Ativan 2 mg Q2H Scopolamine Q72H DVT Prophylaxis: none, comfort measures Time Spent: Greater than 80 minutes spent with patient, 50% of the time spent with this patient was devoted to counseling and coordination of care. [facility] minutes spent discussing advance care planning. Disposition: Admit to: Med/surg Inpatient Hospice - [facility] DNR Discussed Plan of Care with Dr. Laquita Rodríguez. Medications Medication Orders: Medications Ordered Category Date Time Status Lorazepam [Ativan] Meds 11/24/23 15:00 Ordered 2 mg IVP Q2H Morphine Sulfate [Morphine 2 mg/ml Syringe] Meds 11/24/23 15:00 Ordered 2 mg IVP Q2H Scopolamine Hydrobromide [Transderm-Scop 1.5 mg Patch] Meds 11/27/23 09:00 Ordered 1 patch TD Q72HR
[2023-11-24] MEDS ORDERED: ZOFRAN 4 MG/2 ML IVP PRN (15:04)
[2023-11-24] MEDS ORDERED: DULCOLAX RC PRN (15:04)
[2023-11-24 15:24] VITALS: BMI 20.4
[2023-11-24] MEDS: MORPHINE 2 MG/ML SYRINGE IVP SCH (16:19)
[2023-11-24] MEDS: ATIVAN IVP SCH (16:36)
--- NOTE | 2023-11-25 09:13 | PCM.PROG ---
Date/Time Seen Date Seen by Provider: 11/25/23 Time Seen by Provider: 08:45 Provider [facility] Chief Complaint Chief Complaint: ACUTE CVA Subjective Subjective: No events overnight. Voodoo family at bedside. Resting comfortably. Heart rate increased to 120s. Objective Appearance: Positive No Apparent Distress, Ill-Appearing and Thin Chest/Lungs: Positive Symmetrical With Equal Breath Sounds and Clear to Auscultation Bilaterally Heart: Positive Pulses Normal and Tachycardia GI/: Positive Soft, Nontender, No Distention and Bowel Sounds Hypoactive Musculoskeletal: Positive Not Examined Neurological: Positive Other (unresponsive) Vital Signs Vital Signs: Vital Signs: Last 24 Hours 11/24/23 12:43 11/24/23 14:58 11/24/23 14:58 Temperature 98.6 F Temperature Source Temporal Artery Scan Pulse Rate 104 H Pulse Rate [Apical] 102 H Respiratory Rate 17 17 Blood Pressure Blood Pressure Mean Blood Pressure Left Arm 103/53 Blood Pressure Location Blood Pressure Position Supine O2 Sat by Pulse Oximetry 100 Oxygen Delivery Method Nasal Cannula Nasal Cannula Oxygen Flow Rate 2 2 Height 5 ft 5 in Weight 122 lb 9 oz Telemetry Heart Rate 99 Telemetry SPO2 99 11/24/23 18:00 11/24/23 20:00 11/24/23 20:36 Temperature 97.6 F Temperature Source Tympanic Pulse Rate 109 H 105 H Pulse Rate [Apical] 104 H Respiratory Rate 20 16 Blood Pressure 98/59 L 114/59 L Blood Pressure Mean 72 77 Blood Pressure Left Arm Blood Pressure Location Right Arm Left Arm Blood Pressure Position Sitting Supine O2 Sat by Pulse Oximetry 98 100 Oxygen Delivery Method Nasal Cannula Nasal Cannula Nasal Cannula Oxygen Flow Rate 2 2 2 Height Weight Telemetry Heart Rate Telemetry SPO2 11/25/23 05:09 11/25/23 07:10 Temperature 98.4 F Temperature Source Temporal Artery Scan Pulse Rate 117 H Pulse Rate [Apical] 122 H Respiratory Rate 17 17 Blood Pressure 140/73 Blood Pressure Mean 95 Blood Pressure Left Arm Blood Pressure Location Blood Pressure Position Supine O2 Sat by Pulse Oximetry 100 Oxygen Delivery Method Nasal Cannula Nasal Cannula Oxygen Flow Rate 2 2 Height Weight Telemetry Heart Rate Telemetry SPO2 Additional Comments Additional Comments: I have independently reviewed and interpreted the labs/EKGs/imaging ordered during this hospital stay. I have reviewed outside records that are available in our EMR that pertain to medical stay including imaging/notes/labs from previous visits. Active Medications Active Medications: Medications Generic Name Dose Route Start Last Admin Trade Name Freq PRN Reason Stop Dose Admin Acetaminophen 650 mg 11/24/23 15:04 Acetaminophen 650 Mg Supp.Rect RC Q6H PRN FEVER OR PAIN Bisacodyl 10 mg 11/24/23 15:04 Bisacodyl 10 Mg Supp.Rect RC DAILY PRN Constipation Lorazepam 2 mg 11/24/23 15:03 Lorazepam Inj 2 Mg/Ml Vial IVP Q4H PRN Anxiety Morphine Sulfate 2 mg 11/24/23 15:00 11/25/23 07:35 Morphine Sulfate 2 Mg/Ml Syringe IVP 2 mg Q2H JATIN Administration Ondansetron HCl 4 mg 11/24/23 15:04 Ondansetron Hcl/Pf 4 Mg/2 Ml Sdv IVP Q4H PRN Nausea / Vomiting Scopolamine HBr 1 patch 11/27/23 09:00 Scopolamine Hydrobromide 1.5 Mg Patch.Td72 TD Q72HR JATIN Plan Plan: 1. Acute CVA Hospice care: Morphine 2 mg Q2H Ativan 2 mg Q4H prn (Hospice recommendation) Scopolamine Q72H DVT Prophylaxis: none, comfort measures Review Statement Review Statement: I have personally discussed and reviewed the patient's visit/currently labs/imaging/decision making with Dr. Rodríguez, my supervising attending. Greater that 50 minutes spent with patient, 50% of the time spent with this patient was devoted to counseling and coordination of care.
[2023-11-25] MEDS: ATIVAN IVP PRN (11:37)
[2023-11-26] MEDS: ATIVAN IVP SCH (11:15)
--- NOTE | 2023-11-26 11:46 | PCM.PROG ---
Date/Time Seen Date Seen by Provider: 11/26/23 Time Seen by Provider: 09:00 Provider [facility] Chief Complaint Chief Complaint: ACUTE CVA Subjective Subjective: HR higher today and tachypneic in the 30s. Restlessness noted per nursing staff. Shaking leg, making uncomfortable facial expressions, improved with ativan Objective Appearance: Positive Ill-Appearing, Thin and Cachectic Chest/Lungs: Positive Symmetrical With Equal Breath Sounds and Clear to Auscultation Bilaterally Heart: Positive Pulses Normal and Tachycardia GI/: Positive Soft, Nontender and Bowel Sounds Hypoactive Musculoskeletal: Positive Not Examined Neurological: Positive Other (unresponsive) Vital Signs Vital Signs: Vital Signs: Last 24 Hours 11/25/23 18:00 11/25/23 20:00 11/26/23 05:29 Temperature 100.3 F 98 F Temperature Source Axillary Temporal Artery Scan Pulse Rate 130 H 123 H Pulse Rate [Apical] 120 H Respiratory Rate 22 H 20 22 H Blood Pressure 107/64 110/58 L Blood Pressure Mean 78 75 Blood Pressure Location Right Arm Left Arm Blood Pressure Position Supine Supine O2 Sat by Pulse Oximetry 97 97 Oxygen Delivery Method Nasal Cannula Nasal Cannula Nasal Cannula Oxygen Flow Rate 2 2 2 11/26/23 08:00 Temperature Temperature Source Pulse Rate Pulse Rate [Apical] Respiratory Rate 30 H Blood Pressure Blood Pressure Mean Blood Pressure Location Blood Pressure Position O2 Sat by Pulse Oximetry Oxygen Delivery Method Nasal Cannula Oxygen Flow Rate 2 Additional Comments Additional Comments: I have independently reviewed and interpreted the labs/EKGs/imaging ordered during this hospital stay. I have reviewed outside records that are available in our EMR that pertain to medical stay including imaging/notes/labs from previous visits. Active Medications Active Medications: Medications Generic Name Dose Route Start Last Admin Trade Name Freq PRN Reason Stop Dose Admin Acetaminophen 650 mg 11/24/23 15:04 Acetaminophen 650 Mg Supp.Rect RC Q6H PRN FEVER OR PAIN Bisacodyl 10 mg 11/24/23 15:04 Bisacodyl 10 Mg Supp.Rect RC DAILY PRN Constipation Lorazepam 2 mg 11/26/23 11:00 11/26/23 11:15 Lorazepam Inj 2 Mg/Ml Vial IVP 2 mg Q2H JATIN Administration Morphine Sulfate 2 mg 11/24/23 15:00 11/26/23 11:15 Morphine Sulfate 2 Mg/Ml Syringe IVP 2 mg Q2H JATIN Administration Ondansetron HCl 4 mg 11/24/23 15:04 Ondansetron Hcl/Pf 4 Mg/2 Ml Sdv IVP Q4H PRN Nausea / Vomiting Scopolamine HBr 1 patch 11/27/23 09:00 Scopolamine Hydrobromide 1.5 Mg Patch.Td72 TD Q72HR JATIN Plan Plan: 1. Acute CVA Hospice care: Morphine 2 mg Q2H Hospice order: Ativan 2 mg Q4H prn - patient showing signs of restlessness today, adjusted to scheduled Q2H, notifed provider Dr. Pennington Scopolamine Q72H DVT Prophylaxis: none, comfort measures Review Statement Review Statement: I have personally discussed and reviewed the patient's visit/currently labs/imaging/decision making with Dr. Rodríguez, my supervising attending. Greater that 50 minutes spent with patient, 50% of the time spent with this patient was devoted to counseling and coordination of care.
[2023-11-27] MEDS: TRANSDERM-SCOP 1.5 MG PATCH TD SCH (09:09)
[2023-11-27] MEDS ORDERED: MORPHINE 2 MG/ML SYRINGE IVP SCH (10:00)
[2023-11-27] MEDS: ATIVAN IVP SCH ×2 (10:05→11:42)
[2023-11-27] MEDS: MORPHINE 4 MG/ML SYRINGE IVP SCH ×2 (10:06→12:18)
--- NOTE | 2023-11-27 11:30 | PCM.PROG ---
Date/Time Seen Date Seen by Provider: 11/27/23 Time Seen by Provider: 09:25 Provider Provider: ANGÉLICA CHAMPAGNE, [facility] Chief Complaint Chief Complaint: ACUTE CVA Subjective Subjective: Respirations more agonal. Tachycardic and agitated per nursing staff at shift change this morning. Objective Appearance: Positive Ill-Appearing, Thin and Cachectic Chest/Lungs: Positive Symmetrical With Equal Breath Sounds and Clear to Auscultation Bilaterally Heart: Positive Pulses Normal and Tachycardia GI/: Positive Soft, Nontender and Bowel Sounds Hypoactive Musculoskeletal: Positive Not Examined Neurological: Positive Other (unresponsive to stimuli) Vital Signs Vital Signs: Vital Signs: Last 24 Hours 11/26/23 17:29 11/26/23 20:00 11/27/23 05:53 Temperature 99.1 F Temperature Source Oral Pulse Rate 127 H 135 H Respiratory Rate 15 18 12 Blood Pressure 114/64 104/62 Blood Pressure Mean 80 76 Blood Pressure Location Right Arm Right Arm Blood Pressure Position Supine Supine O2 Sat by Pulse Oximetry 98 97 Oxygen Delivery Method Nasal Cannula Nasal Cannula Nasal Cannula Oxygen Flow Rate 2 2 2 11/27/23 08:00 Temperature Temperature Source Pulse Rate Respiratory Rate 12 Blood Pressure Blood Pressure Mean Blood Pressure Location Blood Pressure Position O2 Sat by Pulse Oximetry Oxygen Delivery Method Nasal Cannula Oxygen Flow Rate 2 Additional Comments Additional Comments: I have independently reviewed and interpreted the labs/EKGs/imaging ordered during this hospital stay. I have reviewed outside records that are available in our EMR that pertain to medical stay including imaging/notes/labs from previous visits. Active Medications Active Medications: Medications Generic Name Dose Route Start Last Admin Trade Name Freq PRN Reason Stop Dose Admin Acetaminophen 650 mg 11/24/23 15:04 Acetaminophen 650 Mg Supp.Rect RC Q6H PRN FEVER OR PAIN Bisacodyl 10 mg 11/24/23 15:04 Bisacodyl 10 Mg Supp.Rect RC DAILY PRN Constipation Lorazepam 2 mg 11/27/23 10:00 11/27/23 10:05 Lorazepam Inj 2 Mg/Ml Vial IVP 2 mg Q1HR JATIN Administration Morphine Sulfate 4 mg 11/27/23 10:00 11/27/23 11:21 Morphine Sulfate 4 Mg/Ml Syringe IVP 4 mg Q1HR JATIN Administration Ondansetron HCl 4 mg 11/24/23 15:04 Ondansetron Hcl/Pf 4 Mg/2 Ml Sdv IVP Q4H PRN Nausea / Vomiting Scopolamine HBr 1 patch 11/27/23 09:00 11/27/23 09:09 Scopolamine Hydrobromide 1.5 Mg Patch.Td72 TD 1 patch Q72HR JATIN Administration Plan Plan: 1. Acute CVA Hospice care: Morphine 4 mg Q1H Hospice order: Ativan 2 mg Q1H Scopolamine Q72H DVT Prophylaxis: none, comfort measures Review Statement Review Statement: I have personally discussed and reviewed the patient's visit/currently labs/imaging/decision making with Dr. Rodríguez, my supervising attending. Greater that 50 minutes spent with patient, 50% of the time spent with this patient was devoted to counseling and coordination of care.
[2023-11-28] MEDS: TYLENOL RC PRN (06:30)
[2023-11-28] MEDS ORDERED: HUMALOG SUBCUT ONE (10:20)
[2023-11-28] MEDS: ATIVAN INTENSOL PO SCH (10:26)
[2023-11-28] MEDS: ARTIFICIAL TEARS OPTH SOL EACHEYE SCH (11:59)
[2023-11-28] MEDS ORDERED: ARTIFICIAL TEARS OPTH SOL EACHEYE SCH ×2 (12:00)
[2023-11-28 17:17] VITALS: BP 56/35; PULSE 73; RESP 8; TEMP 101.7
--- NOTE | 2023-11-28 21:02 | DCSUM ---
Admission Date Admission Date: 11/24/23 Discharge Date Discharge Date: 11/28/23 Admission Diagnosis Admission Diagnosis: 1. Acute CVA Discharge Diagnosis Discharge Diagnosis: 1. Acute CVA Hospital Provider Hospital Provider: ANGÉLICA CHAMPAGNE, [facility] [place] Primary Care Physician: HALIMA MCCULLOUGH Summary of History and Physical Summary of History and Physical: 83 yo female initially admitted inpatient following an acute CVA and new onset A fib. Patient is normally ambulatory and lives at home alone. Last known well was on Saturday 11/18 and was found on Wednesday 11/22 in the floor covered and urine and feces. POA elected for patient to be comfort measures only and to be admitted to hospice care. 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 She is admitted to inpatient hospice under the care of [facility]. Hospital Course Subjective: During course of stay, patient was under care of [facility]. She was given morphine, ativan, and scopolamine patches. Initially both morphine and ativan was 2 mg Q2H, eventually adjusted to 2 mg Q1H, then morphine 4 mg Q1H. She was unable to swallow, nonverbal, and unable to move left side. Further progressed to complete unresponsiveness. Would become mildly agitated with turning every 2 hours. She became more tachycardic and tachypneic over last 2 days and slowly declined. Time of : [address] ER provider Dr. Gardner. Cause of : Cardiopulmonary arrest. Vital Signs: Most Recent Vital Signs Temperature 101.7 F H 11/28/23 17:17 Temperature Source Tympanic 11/28/23 17:17 Pulse Rate 73 11/28/23 17:17 Respiratory Rate 8 L 11/28/23 17:17 Blood Pressure 56/35 L 11/28/23 17:17 Blood Pressure Mean 42 11/28/23 17:17 Blood Pressure Left Arm 103/53 11/24/23 14:58 Blood Pressure Location Right Arm 11/28/23 17:17 Blood Pressure Position Supine 11/28/23 17:17 O2 Sat by Pulse Oximetry 95 11/28/23 06:00 Oxygen Delivery Method Nasal Cannula 11/28/23 17:17 Oxygen Flow Rate 2 11/28/23 17:17 Height 5 ft 5 in 11/24/23 14:58 Weight 122 lb 9 oz 11/24/23 14:58 Telemetry Heart Rate 99 11/24/23 12:43 Telemetry SPO2 99 11/24/23 12:43 Discharge Instructions Discharge Planning: Discharge Planning > 40 minutes If patient is discharged with left ventricular systolic dysfunction: NA Discharged with a beta aline? [] If no, why not? [] Discharged with an ros/arb? [] If no, why not? [] Time of : [address] by ER provider Dr. Gardner. Cause of : Cardiopulmonary arrest. Discharge Medications: Medications at Discharge (Home Meds & RX) 1 [No Reported Medications] 11/24/23 Discharge Plan Discharge Discharge Orders: Discharge Patient (ONCE); Ordered 11/28/23 Ordered By: FABIENNE LUO Patient Disposition: Did you review [place] [employer] for ALL controlled substances?: No Discussed opioids are addictive and Narcan is available by prescription or from pharmacy.: No Condition: Date/Time: 11/28/23 17:32
== END 2023-11-28 20:28 | disposition expired | DRG 951 ==
LOC: SCU 14:46
PROVIDERS: ADMIT Hospitalist; ATTEND Nurse Practitioner Family